=== PATIENT | female | born 1940 | race Caucasian/White ===

== ENCOUNTER 2019-03-26 18:41 | Emergency (ER) | payer MEDICARE, SELFPAY ==
[2019-03-26 18:43] VITALS: BP 129/98; PULSE 95; RESP 20; TEMP 37.6; O2SAT 99
--- NOTE | 2019-03-26 18:51 | ECG_ITS ---
Measurements Intervals [place] Rate: 77 P: 54 [place]: 151 QRS: -4 QRSD: 129 T: 24 QT: 375 QTc: 427 Interpretive Statements SINUS RHYTHM RIGHT BUNDLE BRANCH BLOCK ABNORMAL ECG Electronically Signed On 03-27-2019 6:53:59 OPHTHALMIC SURGICAL ASSISTANT by Varun Gonzalez D.O.
--- NOTE | 2019-03-26 20:30 | PC.NURSE ---
Pt up to desk stating she is going to leave and she will call her primary MD in the morning for an appointment.
== END 2019-03-26 20:30 | disposition left against medical advice (07) ==
LOC: ANHED 20:41
PROVIDERS: Emergency Provider General Practice; PCP Internal Medicine
DX: I10 Essential (primary) hypertension (principal)
CPT/HCPCS: 93005; 99199

== ENCOUNTER 2019-08-14 01:55 | Outpatient (CLI) | payer MEDICARE, SELFPAY ==
[2019-08-14 19:16] LABS: SARS-CoV-2 RNA PCR Negative
== END 2019-08-14 01:56 | disposition home or self-care (01) ==
LOC: ANHCOVIDDT 01:56
PROVIDERS: PCP Internal Medicine; Visit Provider Internal Medicine Cardiovascular Disease
DX: Z01.812 Encounter for preprocedural laboratory examination (principal); Z11.59 Encounter for screening for other viral diseases
CPT/HCPCS: 87635; C9803; U0003

== ENCOUNTER 2019-08-16 05:39 | Day surgery (SDC) | payer MEDICARE, SELFPAY ==
[2019-08-15 13:05] VITALS: BMI 32.3
[2019-08-16] VITALS (12 sets, daily range): BP systolic 115–154; BP diastolic 49–88; PULSE 51–69; RESP 14–20; O2SAT 97–100
--- NOTE | 2019-08-16 09:25 | WPDHPUPDATE1 ---
History and Physical Update Update Date/Time: Date of service: 08/16/19 09:25 History and Physical has been reviewed, including an updated exam of the patient. There are NO changes in the patient's condition. Risks, benefits, and alternatives have been discussed and questions answered. Patient agrees to proceed with procedure. HPI: Patient is a very pleasant 78-year-old female with carotid arterial stenosis status post right carotid endarterectomy in 2012, history tobacco abuse, PVCs, hypertension, aortic regurgitation with complaints of exertional dyspnea with progressive aortic regurgitation now severe on most recent 2D echocardiogram with referral recommendations for transesophageal echocardiogram. She notes a decline in activity tolerance. Past medical history: See above in HPI Social history: History tobacco abuse, current nonsmoker, lives with . Family history: No history premature atherosclerosis sudden cardiac otherwise not relevant at this time. Review of systems: No near-syncope, syncope or palpitations. No falls, bleeding, headache, rashes hair skin or nail changes. No abdominal pain, diarrhea or constipation. No significant vision changes. All other review of systems unremarkable with the exception of that noted above in history of present illness. Medications: Aspirin 325 mg daily, Prolia, metoprolol tartrate 25 mg twice daily, rosuvastatin 20 mg at bedtime, hydrochlorothiazide 12.5 mg daily Allergies: No known drug allergies Impression/plan of care: Severe aortic regurgitation with progressive shortness of breath decreased activity tolerance with plans for transesophageal echocardiogram to further assess severity of aortic regurgitation. Further recommendations to follow based on results of FER. Risks, benefits, and alternatives to FER explained in detail. Patient verbalized understanding and agreed to proceed with plan of care. Mod Sed Physical Exam Physical Exam Pre Procedural Exam: Normal: Appearance, Eyes, Ears, Nose, Neck, Throat, Airway, Lungs, Heart Size, Heart Rate, Heart Rhythm, Neuro Exam, Abdomen, Liver, Kidneys, Extremities and Skin Hours since solid foods: 12 Hours since liquid intake: 12
--- NOTE | 2019-08-16 09:34 | WPDMODSED ---
Moderate Sedation Note-Pt Data Patient Data Diagnosis: Severe aortic regurgitation Present Complaint: None Procedure to be performed/Plan: Transesophageal echocardiogram Allergies Allergy/AdvReac Type Severity Reaction Status Date / Time No Known Allergies Allergy Unverified 03/29/19 12:43 Home Medications Medication Instructions Recorded Confirmed Type losartan 50 mg tablet 50 mg PO DAILY #90 tablet 12/19/18 01/02/19 Rx Ca 600 mg-D3 800 unit-mag oxide 50 tablet PO DAILY tablet 01/02/19 01/02/19 History nb-Rm-nkhvte-manganese-boron tablet aspirin 325 mg tablet 325 mg PO DAILY 01/02/19 01/02/19 History cholecalciferol (vitamin D3) 250 10,000 unit PO DAILY 01/02/19 01/02/19 History mcg (10,000 unit) capsule cyclosporine 0.05 % eye drops 1 drop EACH EYE Q12H 01/02/19 01/02/19 History denosumab 60 mg/mL subcutaneous 60 mg SUB-Q [id number] 01/02/19 01/02/19 History syringe ergocalciferol (vitamin D2) 50,000 unit PO .once a month tablet 01/02/19 01/02/19 History unit tablet metoprolol tartrate 25 mg tablet 25 mg PO BID tablet 01/02/19 01/02/19 History rosuvastatin 20 mg tablet 20 mg PO DAILY 01/02/19 01/02/19 History turmeric root extract 500 mg 500 mg PO BID 01/02/19 01/02/19 History capsule vitamin A-vitamin C-vit E-min 1 tablet PO DAILY 01/02/19 01/02/19 History vitamin B12 500 mcg-folic acid 400 1 tablet PO DAILY 01/02/19 01/02/19 History mcg tablet Ca 600 mg-D3 800 unit-mag oxide 50 tablet PO DAILY tablet 03/06/19 History ok-Wk-idmdrn-manganese-boron tablet aspirin 325 mg tablet 325 mg PO DAILY 03/06/19 History cyclosporine 0.05 % eye drops 1 drop EACH EYE Q12H 03/06/19 History denosumab 60 mg/mL subcutaneous 60 mg SUB-Q [id number] 03/06/19 History syringe ergocalciferol (vitamin D2) 1,250 50,000 unit PO MONTHLY 03/06/19 History mcg (50,000 unit) capsule losartan 50 mg tablet 50 mg PO DAILY 03/06/19 History metoprolol tartrate 25 mg tablet 25 mg PO BID tablet 03/06/19 History rosuvastatin 20 mg tablet 20 mg PO DAILY 03/06/19 History turmeric root extract 500 mg 500 mg PO BID 03/06/19 History capsule vitamin A-vitamin C-vit E-min 1 tablet PO DAILY 03/06/19 History Current Medications: See list Sedation/Anesthesia: No previous sedation/anesthesia problems (including family history). [facility] Past Medical History Medical History CAD (coronary artery disease) CAD (coronary artery disease) Chronic cough HLD (hyperlipidemia) HTN (hypertension) Hyperlipidemia Hypertension Intermittent claudication Intermittent claudication Osteoporosis Osteoporosis Skin cancer Skin cancer Vitamin deficiency Vitamin deficiency Surgical History Surgical History H/O carotid endarterectomy Right 01/2012 History of right-sided carotid endarterectomy Family History Family History Mother Family history of malignant neoplasm of breast in first degree relative, Onset Age: 51 Father Family history of pancreatic cancer Father Pancreas cancer Mother Breast cancer Social History Social History Smoking status: Former smoker Tobacco type: cigarettes Smoking end date: 02/07/99 Alcohol intake: current Drinks per week: 7 Alcohol use details: 1-1&1/2 drinks per day Substance use: never Substance use type: does not use Living arrangements: with family Gender identity (if verbalized by the patient): Female Spiritual care concerns: No Mod Sed Physical Exam Physical Exam Pre Procedural Exam: Normal: Appearance, Eyes, Ears, Nose, Neck (Supple, normal range of motion), Throat (Posterior hypopharynx clear, nonerythematous), Airway (Normal anatomy, no obstruction), Lungs (Clear to auscultation bilaterally), Heart Size, Heart Rate, Heart Rhythm,
--- NOTE | 2019-08-16 09:35 | WPDTEECHO ---
FER TransEsophageal Echocardiogram Date of procedure: 08/16/19 Procedure Type: Transesophageal echocardiogram Diagnosis: Severe aortic regurgitation Indications: Severe aortic regurgitation Findings: Brief history present illness: Patient is a pleasant 78-year-old female with a history of hypertension, aortic regurgitation, carotid arterial disease status post carotid endarterectomy 2011, history tobacco abuse, PVCs referred for transesophageal echocardiogram for further evaluation for severity of aortic regurgitation as it was noted to have progressed and surface echocardiogram for moderate to severe with complaints of exertional dyspnea. Procedure in detail: After verbal and written informed consent was obtained the patient risks, benefits, and alternatives explained in detail the patient agreed to proceed with the plan of care as outlined above. The patient was evaluated at bedside in the [facility] procedure room. The posterior oropharynx, neck, and jaw angle all within normal limits on examination. Lungs were clear to auscultation. See pre-sedation note for further details The patient was then placed in the appropriate 30 to 45 degree angle supine position at a slight left lateral decubitus position. Patient was monitored throughout the study with telemetry, oxygen saturation, end-tidal CO2 monitoring, blood pressure, heart rate, and respirations. The posterior hypopharynx was then locally anesthetized using repeated administration of Hurricaine spray as well as gargled viscous lidocaine. After local anesthetic of the posterior hypopharynx was achieved and the oral bite block placed, moderate sedation was administered. After confirmation of adequate moderate sedation, the transesophageal echocardiogram probe was advanced through the oral bite block into the posterior hypopharynx and into the esophagus easily and without complication. Multiple, multiplanar echocardiographic images were obtained in multiple standard re- projections. Pulsed wave, continuous-wave, and color-flow Doppler were utilized in conjunction with this study. At the conclusion of the study, the transesophageal echocardiogram probe was removed easily and without complication. The patient tolerated the procedure well without difficulty. Patient was in sinus rhythm throughout the study. Moderate Sedation/Anesthesia administration: Patient reports no prior problems with sedation/anesthesia. Please see pre-sedation noted for physical examination documentation. As noted above, after adequate local anesthesia of the posterior hypopharynx was achieved, a total of 2 mg intravenous Versed and a total of 75 mcg intravenous Fentanyl in multiple divided doses was administered for moderate sedation. Sedation start time was 1015 and end time was 1045 for a total intra-service/procedure face-face time of 30 minutes. Sedation was administered by a qualified/certified observer Pati Henry RN under my supervision with intra-procedure [id number] observation and management throughout the entirety of the procedure. There were no other issues or complications and patient tolerated the procedure well. See post-anesthesia documentation. Findings: Left ventricular size and systolic function was within normal limits without wall motion abnormalities, a visually estimated ejection fraction of 65%, and mild concentric left ventricular hypertrophy. Right ventricular size and systolic function within normal limits. Left atrial size is severely enlarged. Right atrial size is normal. Prominent remnant Eustachian valve identified. Interatrial septum is anatomically normal with evidence of prominent Xdlw-em-Hwrls shunt with color-flow Doppler and secundum ASD, but without R-to-L shunt with injection of agitated saline with and without Valsalva. Mitral valve is anatomically normal with preserved leaflet excursion with moderate thickening and mild focal calcification, moderate mitral annular calcification, 2 to
== END 2019-08-16 13:09 | disposition home or self-care (01) ==
PROVIDERS: PCP Internal Medicine; Visit Provider Internal Medicine Cardiovascular Disease
PROC: (CPT 93312; principal; 2019-08-16 10:00)
DX: I35.1 Nonrheumatic aortic (valve) insufficiency (principal); I36.1 Nonrheumatic tricuspid (valve) insufficiency; I34.0 Nonrheumatic mitral (valve) insufficiency; I10 Essential (primary) hypertension; I25.10 Atherosclerotic heart disease of native coronary artery without angina pectoris; E78.5 Hyperlipidemia, unspecified; M81.0 Age-related osteoporosis without current pathological fracture; Z87.891 Personal history of nicotine dependence; Z79.82 Long term (current) use of aspirin
CPT/HCPCS: 93312; 93320; 93325; J2250; J3010; J7040

== ENCOUNTER 2019-08-31 01:07 | Outpatient (CLI) | payer MEDICARE, SELFPAY ==
[2019-09-01 18:47] LABS: SARS-CoV-2 RNA PCR Negative
== END 2019-08-31 01:08 | disposition home or self-care (01) ==
LOC: ANHCOVIDDT 01:07
PROVIDERS: PCP Internal Medicine; Visit Provider Internal Medicine Cardiovascular Disease
DX: Z01.818 Encounter for other preprocedural examination (principal); Z11.59 Encounter for screening for other viral diseases
CPT/HCPCS: 87635; C9803; U0003

== ENCOUNTER 2019-09-03 05:21 | Day surgery (SDC) | payer MEDICARE, SELFPAY ==
[2019-08-31 14:33] VITALS: BMI 31.8
[2019-09-03] VITALS (15 sets, daily range): BP systolic 105–159; BP diastolic 41–72; PULSE 63–77; RESP 15–20; TEMP 36.3; O2SAT 97–100; BMI 32.5
[2019-09-03 09:34] LABS: Basophils Absolute Auto 0.1 K/mm3 (0.0-0.1); Basophils Percent Auto 0.8 % (0.2-1.2); Eosinophils Absolute Auto 0.2 K/mm3 (0-0.3); Eosinophils Percent Auto 2.6 % (0-4.4); Hemoglobin 12.1 g/dL (12.0-15.0); Immature Granulocyte Absolute 0.03 K/mm3 (0.00-0.031); Immature Granulocyte Percent A 0.3 % (0-0.5); Lymphocytes Absolute Auto 1.96 K/mm3 (0.9-3.2); Lymphocytes Percent Auto 22.8 % (18.3-44.2); Mean Corpuscular HGB Conc 35.6 g/dl (32-36); Mean Corpuscular Hemoglobin 34.2 pg (26-34); Mean Platelet Volume 9.2 fl (7.4-10.4); Monocytes Absolute Auto 0.8 K/mm3 (0.1-0.6); Monocytes Percent Auto 9.7 % (2.6-8.5); Neutrophils Absolute Auto 5.5 K/mm3 (1.3-6.7); Neutrophils Percent Auto 63.8 % (45.5-73.1); Platelet Count Result 248 k/mm3 (150-375); Red Blood Count 3.54 M/mm3 (4.2-5.4); Red Cell Distribution Width 11.9 % (11.5-14.5); White Blood Count 8.6 K/mm3 (4.5-10.0)
[2019-09-03 09:45] LABS: Prothrombin Time 12.5 Seconds (11.1-14.7)
[2019-09-03 09:46] LABS: Anion Gap 14.9 mmol/L (7-16); Blood Urea Nitrogen 22 mg/dL (7-17); Calcium 9.5 mg/dL (8.4-10.2); Carbon Dioxide 27 mmol/L (22-30); Chloride 88 mmol/L (98-107); Estimated CRCL calculation 26 ml/min; Estimated Glomerular Filt Rate 36; Glucose 103 mg/dL (65-105); Potassium 3.9 mmol/L (3.4-5.0); Sodium 126 mmol/L (137-145)
--- NOTE | 2019-09-03 10:06 | WPDMODSED ---
Moderate Sedation Note-Pt Data Patient Data Diagnosis: severe aortic regurgitation, preoperative evaluation Present Complaint: None Procedure to be performed/Plan: left heart catheterization with selective left and right coronary angiography with left ventriculography and hemodynamics Allergies Allergy/AdvReac Type Severity Reaction Status Date / Time No Known Allergies Allergy Verified 09/03/19 09:35 Home Medications Medication Instructions Recorded Confirmed Type losartan 50 mg tablet 50 mg PO DAILY #90 tablet 12/19/18 09/03/19 Rx Ca 600 mg-D3 800 unit-mag oxide 50 1 tablet PO DAILY tablet 01/02/19 09/03/19 History jm-Tz-sjwhpa-manganese-boron tablet aspirin 325 mg tablet 325 mg PO DAILY 01/02/19 09/03/19 History cholecalciferol (vitamin D3) 250 10,000 unit PO DAILY 01/02/19 09/03/19 History mcg (10,000 unit) capsule cyclosporine 0.05 % eye drops 1 drop EACH EYE Q12H 01/02/19 09/03/19 History denosumab 60 mg/mL subcutaneous 60 mg SUB-Q [id number] 01/02/19 09/03/19 History syringe vitamin B12 500 mcg-folic acid 400 1 tablet PO DAILY 01/02/19 09/03/19 History mcg tablet ergocalciferol (vitamin D2) 1,250 50,000 unit PO MONTHLY 03/06/19 09/03/19 History mcg (50,000 unit) capsule metoprolol tartrate 25 mg tablet 25 mg PO BID tablet 03/06/19 09/03/19 History rosuvastatin 20 mg tablet 20 mg PO DAILY 03/06/19 09/03/19 History turmeric root extract 500 mg 500 mg PO BID 03/06/19 09/03/19 History capsule vitamin A-vitamin C-vit E-min 1 tablet PO DAILY 03/06/19 09/03/19 History hydrochlorothiazide 12.5 mg PO DAILY 08/16/19 09/03/19 History loratadine [Claritin] 10 mg PO DAILY 08/16/19 09/03/19 History fluticasone propionate [Flonase 1 spray INTRANASAL DAILY 09/03/19 09/03/19 History Allergy Relief] Current Medications: Active Medications Sodium Chloride (Normal Saline Iv) 500 mls @ 100 mls/hr IV CONT .Q5H COURT Sedation/Anesthesia: No previous sedation/anesthesia problems (including family history). [facility] Past Medical History Medical History CAD (coronary artery disease) CAD (coronary artery disease) Chronic cough HLD (hyperlipidemia) HTN (hypertension) Hyperlipidemia Hypertension Intermittent claudication Intermittent claudication Osteoporosis Osteoporosis Skin cancer Skin cancer Vitamin deficiency Vitamin deficiency Surgical History Surgical History H/O carotid endarterectomy Right 01/2012 History of right-sided carotid endarterectomy Family History Family History Mother Family history of malignant neoplasm of breast in first degree relative, Onset Age: 51 Father Family history of pancreatic cancer Father Pancreas cancer Mother Breast cancer Social History Social History Smoking status: Former smoker Tobacco type: cigarettes Smoking end date: 02/07/99 Additional smoking assessment comments: Hx. of smoking 40 years. Alcohol intake: current Drinks per week: 7 Substance use: never Substance use type: does not use Living arrangements: with family Gender identity (if verbalized by the patient): Female Spiritual care concerns: No Mod Sed Physical Exam Physical Exam Pre Procedural Exam: Normal: Appearance, Eyes, Ears, Nose, Neck, Throat ( posterior hypopharynx clear, nonerythematous), Airway ( normal anatomy, no obstruction), Lungs ( clear to auscultation bilaterally), Heart Size, Heart Rate, Heart Rhythm ( diastolic murmur), Neuro Exam, Abdomen, Liver, Kidneys, Extremities and Skin Hours since solid foods: 12 Hours since liquid intake: 12 Internal Medicine - PN: Obj Da Vital Signs Vital Signs: Vital Signs - 24 hr 09/03/19 09:30 Temperature 36.3 C L Pulse Rate 63 Respiratory Rate 20 Blood Pressure 158/67 H Pulse O
--- NOTE | 2019-09-03 10:25 | WPDHPUPDATE1 ---
History and Physical Update Update Date/Time: 09/03/19 10:25 History and Physical has been reviewed, including an updated exam of the patient. There are NO changes in the patient's condition. Risks, benefits, and alternatives have been discussed and questions answered. Patient agrees to proceed with procedure.
--- NOTE | 2019-09-03 10:25 | PM.PROC ---
Procedure Note - Detailed Date of procedure: 09/03/19 Pre-op diagnosis: Preoperative evaluation, severe aortic regurgitation Post-op diagnosis: same Procedure performed: left heart catheterization with selective left and right coronary angiography with left ventricular hemodynamics Description of procedure: BRIEF HISTORY OF PRESENT ILLNESS: Patient is a pleasant 78-year-old female with HTN, carotid arterial disease h/o tobacco abuse, dyslipidemia with progressive fatigue and exertional dyspnea found to have severe eccentric aortic regurgitation on 2D Echo and confirmed with FER referred for left heart catheterization for delineation of her coronary anatomy on a preoperative basis. PROCEDURES PERFORMED: 1. Left heart catheterization 2. Selective left and right coronary angiography 3. Left ventricular hemodynamics 4. Moderate/conscious sedation administration CATHETERS UTILIZED: Left coronary system- 5 [place] JL4 catheter Right coronary system- 5 [place] WRP catheter Left ventriculography and hemodynamics- 5 [place] angled pigtail catheter PROCEDURE IN DETAIL: After verbal and written informed consent was obtained the patient, risks, benefits, and alternatives explained in detail the patient agreed to proceed with the plan of care as outlined above. The patient was subsequently brought to the cardiac catheterization lab, placed on the cardiac catheterization table, and prepped and draped in the usual sterile fashion. Utilizing approximately 13cc of 1% subcutaneous Lidocaine, the right groin was then locally anesthetized. Utilizing the modified Seldinger technique, a 5 [place]uan arterial vascular access sheath was inserted in the right common femoral artery easily and without complications. Through this access, coronary angiography was subsequently obtained in multiple standard re-projections. Following this, a 5 [place] angled pigtail catheter was advanced retrograde across aortic valve into the cavity of the left ventricle. Left ventriculography was not performed in the interest of sparing contrast given renal insufficiency. The aortic valve was crossed with measurement of hemodynamics and recording including pullback across the aortic valve. The vascular access sheath and angiographic catheters were flushed before and after catheter exchanges. At the conclusion of the diagnostic portion of the procedure, all angiographic guidewires and catheters were removed and the 5 [place] arterial vascular access sheath was then pulled and satisfactory hemostasis was achieved using manual compression. There no complications noted at the conclusion of the diagnostic portion of the study. MODERATE SEDATION/ANESTHESIA ADMINISTRATION: Patient reports no prior problems with sedation/anesthesia. Please see pre-sedation noted for physical examination documentation. Sedation start time was 1034 and end time was 1103 for a total intra-service/procedure face-face time of 29 minutes. A total of 1 mg intravenous Versed and a total of 50 mcg intravenous Fentanyl in multiple divided doses was administered for moderate sedation. Moderate sedation was administered by qualified/certified observer Aman Borrero RN under my supervision with intra-procedure [id number] observation and management throughout the entirety of the procedure. There were no other issues or complications and patient tolerated the procedure well. See post-anesthesia documentation. Anesthesia: local and other ( Monitor/moderate sedation) Surgeon: Jose Foreman MD Drains: No Packing: No Pathology: none sent Complications: No immediate complications Condition: stable Disposition: observation Findings: CORONARY ANGIOGRAPHY: The LEFT MAIN arose from the left coronary cusp and was without angiographically significant disease. The left main then trifurcated into the left anterior descending artery and circumflex coronary artery. LEFT ANTERIOR DESCENDING ARTERY: Moderate caliber vessel proxim
--- NOTE | 2019-09-03 17:10 | SUR.PHASEII ---
1700-pt given D/C orders and instructions. Questions answered and verbalized understanding. AOx4. Groin soft and non-tender, no evidence of bleeding or hematoma noted. Moderate right pedal pulse noted. Taken via wheelchair to waiting vehicle. No distress noted or verbalized at time of departure.
== END 2019-09-03 17:00 | disposition home or self-care (01) ==
PROVIDERS: PCP Internal Medicine; Visit Provider Internal Medicine Cardiovascular Disease
PROC: 4A023N7 Measurement of Cardiac Sampling and Pressure, Left Heart, Percutaneous Approach (ICD-10-PCS; CPT 93452; principal; 2019-09-03 10:00)
DX: Z01.810 Encounter for preprocedural cardiovascular examination (principal); I35.1 Nonrheumatic aortic (valve) insufficiency; I25.10 Atherosclerotic heart disease of native coronary artery without angina pectoris; I10 Essential (primary) hypertension; E78.5 Hyperlipidemia, unspecified; R06.09 Other forms of dyspnea; R53.83 Other fatigue; M81.0 Age-related osteoporosis without current pathological fracture; Z79.82 Long term (current) use of aspirin; Z87.891 Personal history of nicotine dependence
CPT/HCPCS: 36415; 80048; 85025; 85610; 93458; C1887; C1894; J1644; J2250; J3010; J7040

== ENCOUNTER 2020-03-31 10:30 | Outpatient (RCR) | payer MEDICARE, SELFPAY ==
[2020-01-08 15:25] VITALS: BP 158/70; PULSE 56; RESP 16; TEMP 36.4
--- NOTE | 2020-01-17 13:42 | PCCPR ---
Absent Marcelina Coe called is in The ED with her . She did not think she would make it in plans to return on Tuesday at the new time 1100.
--- NOTE | 2020-01-23 16:02 | PCCPR ---
Pt received phone call that she was exposed in public;she plans to call her PCP to see what next steps are for exposure and will let us know when she plans to return.
== END 2020-03-31 12:21 | disposition home or self-care (01) ==
LOC: ANHCPREHAB 10:30
PROVIDERS: PCP Internal Medicine; Visit Provider Internal Medicine Cardiovascular Disease
DX: Z95.2 Presence of prosthetic heart valve (principal)
CPT/HCPCS: 93798

== ENCOUNTER → 2021-11-30 12:06 | Outpatient (CLI) | payer MEDICARE, SELFPAY ==
--- NOTE | ~2021-11-30 | MM_ITS ---
EXAMINATION: MM screening [facility] BI w syd[place] HISTORY: Screening mammogram TECHNIQUE: Craniocaudal and mediolateral oblique 3-D tomosynthesis images were obtained and synthetic 2-D images were generated. CAD analysis was submitted and interpreted. COMPARISON: 01/12/2019, 03/29/2018, 01/03/2017 BREAST PARENCHYMAL COMPOSITION: There are scattered areas of fibroglandular density. FINDINGS: Scattered benign-appearing calcifications are present. No suspicious mass, calcification, o r architectural distortion are identified in either breast to suggest malignancy. There has been no s uspicious interval change. IMPRESSION: 1. No mammographic evidence of malignancy. 2. Recommend routine screening mammography in one year. BI-RADS Category 2: Benign finding(s). Reviewed, dictated and finalized at location A.
== END ==
PROVIDERS: PCP Internal Medicine; Visit Provider Internal Medicine
DX: Z12.31 Encounter for screening mammogram for malignant neoplasm of breast (principal)
CPT/HCPCS: 77063; 77067

== ENCOUNTER 2022-10-27 08:34 | Outpatient (CLI) | payer MEDICARE, SELFPAY ==
--- NOTE | 2022-10-31 16:27 | WPDSLEEPSTUD ---
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 On occasion she has difficulty falling asleep and occasionally she has excessive daytime sleepiness. Sleep History Marcelina Reed is an 81-year-old woman with Worsening pulmonary hypertension, echo on 09/23/2022 shows peak pulmonary arterial pressure of 65 mm Hg, previously was 42 mm Hg. She is having a Basic nocturnal polysomnogram to determine if obstructive sleep apnea is worsening her pulmonary hypertension. She Never awakens from sleep short of breath. She never at night with heartburn, belching or coughing.??She frequently snores, frequently snores loudly enough that others complain. She occasionally has trouble sleeping when she has a cold. She never wakes up gasping for breath during the night. She never has breathing problems at night. She never sweats excessively at night. She never notices her heart pounding or beating irregularly during the night. She frequently falls asleep during the day. She never falls asleep involuntarily, never falls asleep while driving. She never experiences loss of muscle tone with strong emotion. She never feels paralyzed on waking or falling asleep. She rarely experiences vivid dreams upon waking or falling asleep. She never feels afraid of going to sleep. She rarely has nightmares. She rarely recalls her dreams. She occasionally has thoughts racing through her mind. She rarely feels sad or depressed. She rarely feels anxiety. She occasionally notices parts of her body jerk. She never kicks during the night. She frequently feels crawling or aching feelings in her legs. She frequently feels leg pain at night. She never grinds her teeth, and never has morning jaw pain. She frequently feels bothered by pain during the day, occasionally awakened by pain during the night. She constantly wakes up feeling stiff in the morning, constantly wakes feeling sore or achy in the morning. Frequently she awakens with pain in her neck, spine, or joints. Normal bedtime is 12 midnight, often taking a variable amount of time to fall asleep. She typically gets about 8 hours of sleep per night. Her wake time is 9:00 a.m.. she takes naps in the afternoon or evening. A short nap lasting 10 or 15 minutes may be refreshing. She is usually drowsy for 2 hours after waking. Habits:??Tobacco: quit 20 years ago Caffeine: 2-3 cups of coffee a day. Alcohol: 2 beverages per day Recreational substances: none [facility] Past Medical History Medical History (Updated 10/31/22 @ 16:50 by Herminia Jarquin MD) CAD (coronary artery disease) Chronic cough Hyperlipidemia Hypertension Intermittent claudication OAB (overactive bladder) Osteoporosis Skin cancer Vitamin deficiency Surgical History Surgical History Aortic valve replaced 10/2020 H/O carotid endarterectomy Right 01/2012 H/O heart bypass surgery 10/2020 History of right-sided carotid endarterectomy Family History Family History Mother Family history of malignant neoplasm of breast in first degree relative, Onset Age: 51 Father Family history of pancreatic cancer Father Pancreas cancer Mother Breast cancer Social History Social History (Updated 09/30/22 @ 11:39 by Malcolm Sanches MA) Smoking status: Former smoker Tobacco type: cigarettes Smoking end date: 02/07/99 Additional smoking assessment comments: closet smoker varied rare Alcohol intake: current Drinks per week: 7 A
[2022-10-31 16:34] VITALS: BMI 31.2
== END 2022-10-28 07:21 | disposition home or self-care (01) ==
LOC: ANHCSM 08:36
PROVIDERS: PCP Internal Medicine; Visit Provider Internal Medicine Cardiovascular Disease
DX: G47.10 Hypersomnia, unspecified (principal); G47.61 Periodic limb movement disorder
CPT/HCPCS: 95810

== ENCOUNTER 2022-11-20 22:41 | Emergency (ER) | payer MEDICARE, SELFPAY ==
--- NOTE | ~2022-11-20 | XR_ITS ---
EXAMINATION: XR chest 2V DATE: 11/20/2022 23:07 INDICATION: Chest tightness. TECHNIQUE: Frontal and lateral views of the chest were obtained. COMPARISON: Chest 2 views 05/01/2010 FINDINGS: A calcified left lung nodule is consistent with old granulomatous disease. No pleural effus ion or pneumothorax. The heart size is normal. Median sternotomy wires are noted. IMPRESSION: 1. No acute cardiopulmonary disease. Reviewed, dictated and finalized at location E.
--- NOTE | 2022-11-20 22:42 | ECG_ITS ---
Measurements Intervals [place] Rate: 78 P: 60 [place]: 149 QRS: -3 QRSD: 138 T: 10 QT: 390 QTc: 445 Interpretive Statements SINUS RHYTHM RIGHT BUNDLE BRANCH BLOCK Electronically Signed On 11-21-2022 12:58:29 CDT by Noel Alejo M.D.
[2022-11-20 22:44] VITALS: BP 210/88; PULSE 80; RESP 27; TEMP 36.1; O2SAT 100; O2SAT 97
[2022-11-20 22:57] LABS: Basophils Percent Auto 0.3 % (0.2-1.2); Eosinophils Absolute Auto 0.1 K/mm3 (0-0.3); Eosinophils Percent Auto 1.3 % (0-4.4); Hematocrit 40.7 % (37.0-47.0); Hemoglobin 13.6 g/dL (12.0-15.0); Immature Granulocyte Absolute 0.03 K/mm3 (0.00-0.031); Immature Granulocyte Percent A 0.3 % (0-0.5); Lymphocytes Absolute Auto 2.32 K/mm3 (0.9-3.2); Lymphocytes Percent Auto 26.8 % (18.3-44.2); Mean Corpuscular HGB Conc 33.4 g/dl (32-36); Mean Corpuscular Hemoglobin 32.9 pg (26-34); Mean Corpuscular Volume 98.3 fl (80-100); Monocytes Absolute Auto 0.8 K/mm3 (0.1-0.6); Monocytes Percent Auto 9.4 % (2.6-8.5); Neutrophils Absolute Auto 5.4 K/mm3 (1.3-6.7); Neutrophils Percent Auto 61.9 % (45.5-73.1); Platelet Count Result 176 k/mm3 (150-375); Red Blood Count 4.14 M/mm3 (4.2-5.4); Red Cell Distribution Width 12.5 % (11.5-14.5); White Blood Count 8.7 K/mm3 (4.5-10.0)
[2022-11-20 23:12] LABS: Alanine Aminotransferase 15 U/L (6-35); Albumin Level 4.9 g/dL (3.5-5.1); Alkaline Phosphatase 56 U/L (38-126); Anion Gap 8 mmol/L (8-16); Aspartate Amino Transferase 26 U/L (14-36); Bilirubin,Total 0.8 mg/dL (0.2-1.3); Blood Urea Nitrogen 15 mg/dL (7-17); Calcium 9.6 mg/dL (8.4-10.2); Carbon Dioxide 29 mmol/L (22-30); Chloride 94 mmol/L (98-107); Estimated CRCL calculation 33 ml/min; Estimated Glomerular Filt Rate 53; Glucose 102 mg/dL (65-110); Lipase 110 U/L (23-300); Potassium 3.8 mmol/L (3.4-5.0); Sodium 131 mmol/L (137-145)
[2022-11-20 23:18] LABS: Prothrombin Time 13.6 Seconds (11.1-14.7)
[2022-11-20 23:19] LABS: Partial Thromboplastin Time 32.2 SECONDS (22.3-36.8)
[2022-11-20 23:24] LABS: Troponin I < 0.012 ng/mL (0.000-0.034)
[2022-11-20] MEDS: ASPIRIN 81 MG CHEWABLE TABLET 324 MG PO (23:26)
[2022-11-20 23:30] VITALS: PULSE 65; RESP 20; O2SAT 97
[2022-11-20 23:46] VITALS: BP 177/64; PULSE 60; RESP 21; O2SAT 96
[2022-11-20 23:47] VITALS: PULSE 59; RESP 19; O2SAT 97
[2022-11-21] VITALS: PULSE 59; RESP 18; O2SAT 97
[2022-11-21 00:01] VITALS: BP 161/65; PULSE 58; RESP 23; O2SAT 96
[2022-11-21 00:17] VITALS: PULSE 59; RESP 21; O2SAT 97
--- NOTE | 2022-11-21 00:26 | ED.GENADULT ---
HPI - General Adult General Chief complaint: Chest Pain Stated complaint: HTN, chest tightness Time Seen by Provider: 11/20/22 22:44 History of Present Illness HPI narrative: Patient 82-year-old female presents emerged department with chief complaint of hypertension and slight discomfort in the chest. Patient states that she has a fullness feeling in her low chest that also noticed that her blood pressures been running elevated the patient states for the last week her pressures been running in the 180s to low 200s patient reports no shortness of breath denies diaphoresis denies radiation of pain patient does report that she had single-vessel cardiac disease and had a bypass and is also had a valve replacement. Related Data Home Medications Medication Instructions Recorded Confirmed Ca 600 mg-D3 20 mcg-mag oxide 50 1 tablet PO DAILY 01/02/19 09/30/22 qd-Xh-dchnpm-manganese-boron tablet (Calcium 600-D3 Plus (mag-zinc)) cyclosporine 0.05 % eye drops 1 drop ophthalmic (eye) Q12H 01/02/19 09/30/22 (Restasis MultiDose) denosumab 60 mg/mL subcutaneous 60 mg subcut [id number] 01/02/19 09/30/22 syringe (Prolia) vitamin B12 500 mcg-folic acid 400 1 tablet PO DAILY 01/02/19 09/30/22 mcg tablet ergocalciferol (vitamin D2) 1,250 50,000 unit PO MONTHLY 03/06/19 09/30/22 mcg (50,000 unit) capsule rosuvastatin 20 mg tablet 20 mg PO DAILY 03/06/19 09/30/22 loratadine 10 mg tablet (Claritin) 10 mg PO DAILY 08/16/19 09/30/22 aspirin 81 mg tablet,delayed 81 mg PO DAILY 11/14/19 09/30/22 release (Adult Aspirin Regimen) omeprazole 20 mg capsule,delayed 20 mg PO DAILY 11/14/19 09/30/22 release metoprolol succinate 50 mg 75 mg PO BID 11/30/19 09/30/22 tablet,extended release 24 hr acetaminophen 500 mg tablet 1,000 mg PO PRN Pain 01/08/20 09/30/22 furosemide 40 mg tablet 40 mg PO DAILY 01/08/20 09/30/22 cholecalciferol (vitamin D3) 125 125 mcg PO DAILY 05/19/21 09/30/22 mcg (5,000 unit) capsule Allergies Allergy/AdvReac Type Severity Reaction Status Date / Time No Known Allergies Allergy Verified 09/30/22 11:38 Review of Systems Review of Systems: A 10 system review of systems was completed on the patient and is negative except for what is stated in the HPI. Nursing and ancillary documentation was reviewed. [facility] Past Medical History Medical History CAD (coronary artery disease) Chronic cough Hyperlipidemia Hypertension Intermittent claudication OAB (overactive bladder) Osteoporosis Skin cancer Vitamin deficiency Surgical History Surgical History Aortic valve replaced 10/2020 H/O carotid endarterectomy Right 01/2012 H/O heart bypass surgery 10/2020 History of right-sided carotid endarterectomy Family History Family History Mother Family history of malignant neoplasm of breast in first degree relative, Onset Age: 51 Father Family history of pancreatic cancer Father Pancreas cancer Mother Breast cancer Social History Social History Smoking status: Former smoker Tobacco type: cigarettes Smoking end date: 02/07/99 Additional smoking assessment comments: closet smoker varied rare Alcohol intake: current Drinks per week: 7 Alcohol use details: 1-1&1/2 drinks per day Substance use: never Substance use type: does not use Lack of Transportation: No Lack of Food: Never True Current Housing: I Have Housing Concerned About Future Housing: No Difficulty Paying Gas/Electric Bills: No Difficulty Paying for Meds: No Currently Unemployed: No Education: Bachelor's Degree Difficulty w/ Childcare or Family Care: No Living arrangements: with family Gender identity (if verbalized by the patient): Female
[2022-11-21 00:30] VITALS: PULSE 60; RESP 23; O2SAT 97
[2022-11-21 00:31] VITALS: BP 181/63; PULSE 60; RESP 24; O2SAT 98
== END 2022-11-21 01:11 | disposition home or self-care (01) ==
PROVIDERS: Emergency Provider Emergency Medicine; PCP Internal Medicine
DX: I10 Essential (primary) hypertension (principal); R07.89 Other chest pain; I25.10 Atherosclerotic heart disease of native coronary artery without angina pectoris; E78.5 Hyperlipidemia, unspecified; E56.9 Vitamin deficiency, unspecified; N32.81 Overactive bladder; M81.0 Age-related osteoporosis without current pathological fracture; Z95.2 Presence of prosthetic heart valve; Z85.828 Personal history of other malignant neoplasm of skin; Z87.891 Personal history of nicotine dependence; Z79.82 Long term (current) use of aspirin; I45.10 Unspecified right bundle-branch block
CPT/HCPCS: 36415; 71046; 80053; 83690; 84484; 85025; 85610; 85730; 93005; 99284; A9270

== ENCOUNTER → 2022-12-27 11:52 | Outpatient (CLI) | payer MEDICARE, SELFPAY ==
--- NOTE | ~2022-12-27 | XR_ITS ---
EXAMINATION: XR hip BI 2V w AP pelvis DATE: 12/27/2022 12:05 INDICATION: Bilateral hip pain TECHNIQUE: AP view of the pelvis and two views of each hip were obtained. COMPARISON: None. FINDINGS: Bone alignment is normal. There is no fracture. There is mild osteoarthritis of the hips. P hleboliths are noted in the pelvis. IMPRESSION: 1. No acute osseous abnormality. Reviewed, dictated and finalized at location F. ANESE BREAKER
== END ==
PROVIDERS: PCP Internal Medicine; Visit Provider Internal Medicine
DX: M25.551 Pain in right hip (principal); M25.552 Pain in left hip
CPT/HCPCS: 73521

== ENCOUNTER 2022-12-27 13:39 | Outpatient (CLI) | payer MEDICARE, SELFPAY ==
[2022-12-27 18:15] LABS: Hematocrit 38.5 % (37.0-47.0); Hemoglobin 12.5 g/dL (12.0-15.0); Mean Corpuscular HGB Conc 32.5 g/dl (32-36); Mean Corpuscular Hemoglobin 32.6 pg (26-34); Mean Corpuscular Volume 100.5 fl (80-100); Mean Platelet Volume 10.2 fl (7.4-10.4); Platelet Count Result 176 k/mm3 (150-375); Red Blood Count 3.83 M/mm3 (4.2-5.4); Red Cell Distribution Width 12.5 % (11.5-14.5); White Blood Count 8.3 K/mm3 (4.5-10.0)
[2022-12-27 18:26] LABS: Alanine Aminotransferase 12 U/L (6-35); Albumin Level 4.5 g/dL (3.5-5.1); Alkaline Phosphatase 56 U/L (38-126); Anion Gap 8 mmol/L (8-16); Aspartate Amino Transferase 27 U/L (14-36); Bilirubin,Total 0.9 mg/dL (0.2-1.3); Blood Urea Nitrogen 19 mg/dL (7-17); Carbon Dioxide 28 mmol/L (22-30); Chloride 94 mmol/L (98-107); Estimated Glomerular Filt Rate 43; Glucose 140 mg/dL (65-110); Potassium 4.4 mmol/L (3.4-5.0); Sodium 130 mmol/L (137-145)
[2022-12-27 19:15] LABS: Erythrocyte Sedimentation Rate 16 mm/hr (0-20)
[2022-12-27 20:42] LABS: Folic Acid 13.4 ng/mL (2.76->20)
== END 2022-12-27 13:40 | disposition home or self-care (01) ==
LOC: ANHGOSHLAB 13:41
PROVIDERS: PCP Internal Medicine; Visit Provider Internal Medicine
DX: R53.83 Other fatigue (principal); I10 Essential (primary) hypertension; J32.9 Chronic sinusitis, unspecified
CPT/HCPCS: 36415; 80053; 82607; 82746; 84443; 85027; 85652

== ENCOUNTER 2023-02-08 11:00 | Outpatient (RCR) | payer MEDICARE, SELFPAY ==
--- NOTE | 2023-01-11 11:22 | PTOPEVAL1 ---
Assessment and note entered by Deangelo Aguilar, PT Evaluation Information Assessment Status Evaluation Diagnosis Unsteadiness on feet, weakness Onset 8 years ago Subjective Information Reports that as of late walking and navigating stairs have been very difficult. She is getting pain and weakness in her legs mostly anterior quads. She has not had any recent falls, but about 5 years ago she did fracture her knee. Most of her pain feels like her back. She is getting some pain radiating down her legs at times. She is still driving and seems to manage well with that. She is having some trouble with foot clearance into her car. Endurance does not feel like an issue at this time. Has pain with standing activity in back but is relieved by sitting. Reported Pain Level Pain Score 2: Self Report Assessment PT Clinical Summary Patient presents with most deficits in hip mobility and strength this date. Scored well on Tinetti but does show some stability deficits and will benefit from skilled therapy to address. Would like to focus on hip mobility and isolated strengthening with progression to functional training and balance as she progresses Plan of Care Interventions Electrical Stimulation,Gait Training,Manual Therapy,Neuro Re-education,Therapeutic Activities, Therapeutic Exercise PT Services Indicated Yes Treatment Frequency and 2x/week for 4 weeks Duration These treatments will address the objective and functional deficits as defined above. The patient will be advanced safely and appropriately in order for the patient to progress towards his/her prior level of function. Additional exercises will be introduced and as well as a comprehensive home exercise program upon discharge, if needed, ?to ensure carryover of functional gains achieved in the clinic. This treatment plan has been reviewed and agreement upon by the patient.
--- NOTE | 2023-01-11 11:23 | OPREHPOC ---
Outpatient Therapy Plan of Care This is a Multidisciplinary Plan of Care that may contain components documented by all disciplines (PT, OT, and ST.) PT Problem 1 PT Problem #1 Knowledge Deficit PT Goal 1 Goal [place] with HEP Target Visit 4 PT Problem 2 PT Problem #2 Pain PT Goal 1 Goal Patient will report no pain with standing activity for 30 minutes Target Visit 8 PT Problem 3 PT Problem #3 Impaired Range of Motion PT Goal 1 Goal Demonstrate 40 degrees of kayla hip abduction to assist with reduction in pelvic pull and reducestride limitation with gait Target Visit 8 PT Problem 4 PT Problem #4 Impaired Strength PT Goal 1 Goal Patient will improve kayla hip abduction strength to 4/5 to improve pelvic stability and endurance with ADL performance and walking Target Visit 8 PT Goal 2 Goal Patient will improve kayla hip flexion strength to 4 +/5 to improve foot clearence with walking Target Visit 8 PT Problem 5 PT Problem #5 Impaired Balance PT Goal 1 Goal Patient will demonstrate ability to perform dynamic balance shifting on uneven surface for 30 seconds to reduce fall risk with dynamic activity Target Visit 8
--- NOTE | 2023-02-08 11:55 | PTOPDC ---
Assessment and note entered by Deangelo Aguilar, PT Evaluation Information Assessment Status Discharge Diagnosis Unsteadiness on feet, weakness Onset 8 years ago Subjective Information Reports that since starting therapy she is still struggling with stairs. She has pain in her knees when she does stairs. Reports that she is not going to have a knee replacement and will avoid it. Still has some difficulty with walking and endurance. She has been consistent and compliant with exercises both in therapy and home. Does not notice a lot of change in distance or frequency of walking. We discussed objective improvement and patient would like to continue exercises at home and work towards self motivation. States that she has a recumbent bike at home and will use it for increased cardio exercie weekly. Reported Pain Level Pain Score 0: Self Report Assessment PT Clinical Summary Patient has seen objective improvement in hip mobility and strength with minor balance limitations remaining. She is suitable for discharge but still shows potential for continued improvement and will be complaint with HEP. Plan of Care PT Services Indicated Yes
--- NOTE | 2023-02-08 11:56 | OPREHPOC ---
Outpatient Therapy Plan of Care This is a Multidisciplinary Plan of Care that may contain components documented by all disciplines (PT, OT, and ST.) PT Problem 1 PT Problem #1 Knowledge Deficit PT Goal 1 Goal [place] with HEP Target Visit 4 Progress Met PT Problem 2 PT Problem #2 Pain PT Goal 1 Goal Patient will report no pain with standing activity for 30 minutes Target Visit 8 Progress Met PT Problem 3 PT Problem #3 Impaired Range of Motion PT Goal 1 Goal Demonstrate 40 degrees of kayla hip abduction to assist with reduction in pelvic pull and reducestride limitation with gait Target Visit 8 Progress Partially Met Comment Improve R, but lacking on L LE PT Problem 4 PT Problem #4 Impaired Strength PT Goal 1 Goal Patient will improve kayla hip abduction strength to 4/5 to improve pelvic stability and endurance with ADL performance and walking Target Visit 8 Progress Partially Met Comment Improved PT Goal 2 Goal Patient will improve kayla hip flexion strength to 4 +/5 to improve foot clearence with walking Target Visit 8 Progress Partially Met Comment Improved PT Problem 5 PT Problem #5 Impaired Balance PT Goal 1 Goal Patient will demonstrate ability to perform dynamic balance shifting on uneven surface for 30 seconds to reduce fall risk with dynamic activity Target Visit 8 Progress Met
== END 2023-02-08 13:06 | disposition home or self-care (01) ==
LOC: ANHGOSHPT 11:00
PROVIDERS: PCP Internal Medicine; Visit Provider Internal Medicine
DX: R26.81 Unsteadiness on feet (principal); R29.898 Other symptoms and signs involving the musculoskeletal system
CPT/HCPCS: 97014; 97110; 97112; 97116; 97161; 97530; G0283

== ENCOUNTER 2023-05-13 10:36 | Outpatient (CLI) | payer MEDICARE, SELFPAY ==
[2023-05-13 14:52] LABS: Vitamin D 25 Hydroxy 88.1 ng/mL
== END 2023-05-13 10:37 | disposition home or self-care (01) ==
LOC: ANHGOSHLAB 10:38
PROVIDERS: PCP Internal Medicine; Visit Provider Internal Medicine
DX: M81.0 Age-related osteoporosis without current pathological fracture (principal)
CPT/HCPCS: 36415; 82306

== ENCOUNTER 2023-07-18 13:57 | Outpatient (CLI) | payer MEDICARE, SELFPAY ==
--- NOTE | ~2023-07-18 | CT_ITS ---
EXAMINATION: CT sinus wo con DATE: 07/18/2023 14:20 INDICATION: Acute recurrent sinusitis and cough TECHNIQUE: Computed tomography (CT) of the paranasal sinuses was performed without intravenous contra st. The dose-length product was 309.20 mGy-cm. Automated exposure control and iterative reconstructio n technique were employed. COMPARISON: CT dated 02/28/2019 FINDINGS: No significant mucosal thickening. No air-fluid levels. Leftward nasal septal deviation. Os tiomeatal units are patent. Small left mastoid effusion. IMPRESSION: 1. No significant sinus disease. 2: Small left mastoid effusion. Reviewed, dictated and finalized at location B.
== END 2023-07-18 13:58 ==
LOC: MICIMG 13:58
PROVIDERS: PCP Internal Medicine; Visit Provider Otolaryngology
DX: J01.90 Acute sinusitis, unspecified (principal)
CPT/HCPCS: 70486

== ENCOUNTER 2023-07-25 13:58 | Outpatient (CLI) | payer MEDICARE, SELFPAY ==
[2023-07-25 20:58] LABS: Anion Gap 3 mmol/L (4-12); Blood Urea Nitrogen 13 mg/dL (7-17); Calcium 9.4 mg/dL (8.4-10.2); Carbon Dioxide 31 mmol/L (22-30); Chloride 101 mmol/L (98-107); Estimated Glomerular Filt Rate 47; Glucose 117 mg/dL (65-110); Potassium 4.4 mmol/L (3.4-5.0); Sodium 135 mmol/L (137-145)
[2023-07-25 22:26] LABS: Vitamin D 25 Hydroxy 80.2 ng/mL
== END 2023-07-25 13:59 | disposition home or self-care (01) ==
PROVIDERS: PCP Internal Medicine; Visit Provider Internal Medicine
DX: E87.1 Hypo-osmolality and hyponatremia (principal); E55.9 Vitamin D deficiency, unspecified
CPT/HCPCS: 36415; 80048; 82306

== ENCOUNTER 2023-12-27 10:06 | Outpatient (CLI) | payer MEDICARE, SELFPAY ==
[2023-12-27 13:42] LABS: Alanine Aminotransferase 10 U/L (6-35); Albumin Level 4.4 g/dL (3.5-5.1); Alkaline Phosphatase 51 U/L (38-126); Anion Gap 5 mmol/L (4-12); Aspartate Amino Transferase 37 U/L (14-36); Blood Urea Nitrogen 14 mg/dL (7-17); Calcium 9.1 mg/dL (8.4-10.2); Carbon Dioxide 29 mmol/L (22-30); Chloride 101 mmol/L (98-107); Cholesterol 161 mg/dL (0-200); Estimated Glomerular Filt Rate 47; Glucose 94 mg/dL (65-110); HDL Direct 60 mg/dL; Sodium 135 mmol/L (137-145); Triglycerides 81 mg/dL (<150)
[2023-12-27 13:47] LABS: Basophils Percent Auto 0.5 % (0.2-1.2); Eosinophils Absolute Auto 0.2 K/mm3 (0-0.3); Eosinophils Percent Auto 2.9 % (0-4.4); Hematocrit 38.4 % (37.0-47.0); Hemoglobin 12.7 g/dL (12.0-15.0); Immature Granulocyte Absolute 0.01 K/mm3 (0.00-0.031); Immature Granulocyte Percent A 0.2 % (0-0.5); Lymphocytes Absolute Auto 1.33 K/mm3 (0.9-3.2); Mean Corpuscular HGB Conc 33.1 g/dl (32-36); Mean Corpuscular Hemoglobin 32.6 pg (26-34); Mean Corpuscular Volume 98.5 fl (80-100); Mean Platelet Volume 10.3 fl (7.4-10.4); Monocytes Absolute Auto 0.5 K/mm3 (0.1-0.6); Monocytes Percent Auto 9.2 % (2.6-8.5); Neutrophils Absolute Auto 3.5 K/mm3 (1.3-6.7); Neutrophils Percent Auto 63.2 % (45.5-73.1); Platelet Count Result 156 k/mm3 (150-375); Red Cell Distribution Width 12.4 % (11.5-14.5); White Blood Count 5.5 K/mm3 (4.5-10.0)
[2023-12-27 14:07] LABS: LDL Cholesterol Direct 76 mg/dL
[2023-12-27 14:39] LABS: Vitamin D 25 Hydroxy 83.6 ng/mL
[2023-12-27 20:24] LABS: Folic Acid 12.6 ng/mL (2.76->20)
== END 2023-12-27 10:07 | disposition home or self-care (01) ==
LOC: ANHGOSHLAB 10:07
PROVIDERS: PCP Internal Medicine; Visit Provider Internal Medicine
DX: R53.83 Other fatigue (principal); I25.10 Atherosclerotic heart disease of native coronary artery without angina pectoris; E87.1 Hypo-osmolality and hyponatremia; E78.5 Hyperlipidemia, unspecified; I10 Essential (primary) hypertension; E55.9 Vitamin D deficiency, unspecified; E53.8 Deficiency of other specified B group vitamins
CPT/HCPCS: 36415; 80053; 80061; 82306; 82607; 82746; 84443; 85025

== ENCOUNTER 2024-05-29 10:45 | Outpatient (CLI) | payer MEDICARE, SELFPAY ==
--- OUTSIDE RECORDS SUMMARY | 2024-05-29 12:22 | XMS_ITS | Encounter Summary ---
Author Organization [facility] Address [address] [place] [id number] Care Team Providers Care Scoop Machine Operator Name Role Phone Getachew Samaniego DO Primary Care Provider [phone] Getachew Samaniego DO Primary Care Provider [phone]- [phone] Getachew Samaniego DO Primary Care Provider [phone]- [phone] Encounter Details Date Type Department Care Team (Late st Contact Info) Description 03/24/2016 Orders Only [facility] ProviderMohini MD [address] [place] [id number] Social History Tobacco Use Types Packs/Day Years Used Date Smoking Tobacco: Never Assessed Comments Unknown Sex and Gender Information Value Date Recorded Sex Assigned at Not on file 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 us Historical Provider [facility]IAC SERVICES PROCE DURES Final Result * CARDIOLOGY REPORT (03/24/2016) Anatomical Region Laterality Modality Other Narrative 03/24/2016 Ordered by an unspecified provider. us Historical Provider [facility] CARDIAC SERVICES PROCE DURES Final Result documented in this encounter Visit Diagnoses Not on filedocumented in this encounter Additional Health Concerns Infection Onset Date Last Indicated Resolved Time COVID: Suspected 09/20/2019 09/20/2019 10/04/2019 3:06 AM CDT COVID: Suspected 11/15/2019 11/15/2019 11/16/2019 6:58 AM CDT Respiratory Infection (ALEC), contact + droplet Comment:Negative COVID-19 result, an alternative Dx has been determined per the bedside CAN Rao RN 11/16/19 11/16/2019 11/16/2019 11/16/2019 8:59 AM C DT documented as of this encounter Care Teams Scoop Machine Operator Relationship Specialty Start Date End Date Getachew Samaniego DO PCP - General 05/07/16 04/06/23 Getachew Samaniego DO PCP - General 11/22/11 05/06/16 Getachew Samaniego DO PCP - General Internal Medicine 04/07/23 documented as of this encounter
--- OUTSIDE RECORDS SUMMARY | 2024-05-29 12:22 | XMS_ITS | Clinical Summary ---
Author Organization [facility] Address [address] [place] [address] Care Team Providers Care Tank Refinisher Name Role Phone Jeffery Marvin MD Primary Care Provider Source Comments [facility],non-owned Affiliates and Associated Physician Practices is amultiple site organization consisting of ambulatory clinics and hospital sitesin [place], [place], [place] and [place]. This disclosure is being madepursuant to the Care Everywhere program and may not contain all information available regarding this patient. 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 Gender Identity Not on file Sexual Orientation Not on file Plan of Treatment Health Maintenance Due Date Last Done Comments BONE DENSITY TESTING 1938 DTAP/TDAP/TD VACCINES (1 - Tdap) 1957 PNEUMOCOCCAL VACCINE 50+ (1 of 1 - PCV) 1988 ZOSTER VACCINE (1 of 2) 1988 Respiratory Syncytial Virus (RSV) Vaccine Pt: or over 60 yrs (1 - 1-dose 75+ series) 2013 COVID-19 VACCINE ( - 2023-2 5 season) 2023 DEPRESSION SCREENING 02/08/2024 MEDICARE AWV CALENDAR YEAR 2024 INFLUENZA VACCINE (Season Ended) 2024 HEPATITIS B VACCINE Aged Out No longe r eligible based on patient's age to complete this topic HIB VACCINE Aged Out No longer eligi ble based on patient's age to complete this topic HPV VACCINE Aged Out No longer eligi ble based on patient's age to complete this topic MENINGOCOCCAL (Group B) VACC INE SHARED DECISION-MAKING Aged Out No longer eligibl e based on patient's age to complete this topic MENINGOCOCCAL GROUPS A/C/Y/W VACCINE Aged Out No longer eligible b ased on patient's age to complete this topic Insurance [facility] MANAGED MEDICARE ADV Care Teams Tank Refinisher Relationship Specialty Start Date End Date Jeffery Marvin MD [address] [place] [address] PCP - General 12/08/11
--- OUTSIDE RECORDS SUMMARY | 2024-05-29 12:22 | XMS_ITS | Encounter Summary ---
Author Organization [facility] Address [address] [place] [address] Care Team Providers Care Pharmaceutical Laboratory Technician Name Role Phone Jeffery Marvin MD Primary Care Provider [phone] Encounter Details Date Type Department Care Team (Late st Contact Info) Description 06/10/2021 Lab Requisition [facility] [address] [place] [id number] Seun Nunes MD [address] [place] [address] Social History Tobacco Use Types Packs/Day Years Used Date Smoking Tobacco: Never Assessed Comments Unknown Sex and Gender Information Value Date Recorded Sex Assigned at Not on file 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 Gender Identity Not on file Sexual Orientation Not on file documented as of this encounter Plan of Treatment Not on file documented as of this encounter Procedures Procedure Name Priority Date/Time Associated Diagnosis Comments DERMATOPATHOLOGY Routine 06/09/2021 12:0 0 AM CDT documented in this encounter Results * DERMATOPATHOLOGY (06/09/2021 12:00 AM CDT) Case Report Dermatopathology Report Case: [id number] Authorizing Provider: Seun Nunes MD Collected: 06/09/2021 12:00 AM Ordering Location: [facility] Received: 06/10/2021 01:29 PM Pathologist: Greer Jack MD Specimen: Skin, right cheek above mid jawline 2 5:05 PM CDT DERMATOPATHOLOGY LABORATORY Final Diagnosis Specimen A. 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 2 5:05 PM T DERMATOPATHOLOGY LABORATORY Gross Description Specimen A: Received is one formalin filled container labeled with the patient's name and designated right cheek above mid jawline. The specimen consists of a shave biopsy measuring 3m9m3zd. Jar 0. 2 5:05 PM T DERMATOPATHOLOGY LABORATORY Microscopic Description Specimen A. SKIN, right cheek above mid jawline: The epidermis shows parakeratosis, full thickness disorderly maturation of keratinocytes, mitoses at different levels, and dyskeratotic cells. 2 5:05 PM T DERMATOPATHOLOGY LABORATORY Disclaimer An external and internal positive and negative controls are appropriate for the histochemical, immunohistochemical and immunofluorescence stain(s) in this case (if any), except where stated explicitly. The performance characteristics of the stain(s) cited in this report were developed and its performance characteristic determined by the Dermatopathology Laboratory at [facility], directed by Dr. Darling Jack. These tests need not be, and therefore are not, approved by the [place] Food and Drug Administration. The tests are used for clinical purposes. Billing Codes Specimen Charges Stain Charges 17380 1 2 5:05 PM CDT DERMATOPATHOLOGY LABORATORY Embedded Images 2 5:05 PM CDT DERMATOPATHOLOGY LABORATORY Pathology/Cytolog y TISSUE SPECIMEN FROM SKIN / Unknown 06/09/2021 06/10/2021 1:29 PM CDT us Seun Nunes MD LAB - PATHOLOGY/CYTOLOGY ORD ERABLES Final Result DERMATOPATHOLOGY LABORATORY [facility] - Department of Dermatology [address], [address] [phone] documented in this encounter Visit Diagnoses Not on filedocumented in this encounter Care Teams Pharmaceutical Laboratory Technician Relationship Specialty Start Date End Date Jeffery Marvin MD [address] [place] [address] PCP - General 12/08/11 documented as of this encounter
--- OUTSIDE RECORDS SUMMARY | 2024-05-29 12:23 | XMS_ITS | Clinical Summary ---
Author Organization [facility] [address] Address [address] [place] [address] Care Team Providers Care Chip Silo Tender Name Role Phone Getachew Samaniego DO Primary Care Provider [phone]- [phone] Allergies Active Allergy Reactions Criticality Noted Date Comments Adhesive Rash Medium 11/10/2022 Medications cyanocobalamin (Vitamin B-12) 500 mcg tabletIndication s:Prevention of Vitamin B12 Deficiency Take 1 tablet (500 mcg total) by mouth daily Active aspirin 81 mg chewable tablet Take 1 tablet (81 mg total) by mouth daily 10/26/2019 Active calcium carbonate-vitami n D3 1,250 mg (500 mg elemental)-125 unit per tablet Take 1 tablet by mouth daily Active denosumab (PROLIA) 60 mg/mL syringe Inject 1 mL (60 mg total) under the skin every 6 (six) months Active cholecalciferol (VITAMIN D-3) 5,000 unit tablet Active cycloSPORINE (RESTASIS) 0.05 % ophthalmic emulsion 12/28/2021 Active cetirizine (ZyrTEC) 5 mg chewable tablet Take 1 tablet (5 mg total) by mouth daily Active losartan (COZAAR) 25 mg tablet Take 1 tablet (25 mg total) by mouth daily 30 tablet 6 12/15/2023 Active furosemide (LASIX) 20 mg tablet Take 1 tablet (20 mg total) by mouth daily 90 tablet 1 12/16/2023 Active oxyBUTYnin XL (DITROPAN-XL) 5 mg 24 hr tablet Take 1 tablet (5 mg total) by mouth daily 12/14/2023 Active metoprolol XL (TOPROL-XL) 50 mg extended release tablet TAKE 1 TABLET(50 MG) BY MOUTH DAILY 90 tablet 1 04/13/2024 Active rosuvastatin (CRESTOR) 10 mg tablet TAKE 1 TABLET(10 MG) BY MOUTH DAILY 90 tablet 2 04/16/2024 Active SODIUM CHLORIDE ORAL Take by mouth once 1 gram tablet Active Hospital, Clinic, or Other Facility Administered Medication Ordered Dose Route Frequency Start Date End Date Status denosumab (PROLIA) subcutaneous syringe 60 mgIndications:Age-related osteoporosis without current pathological fracture 60 mg subQ Once 05/18/2024 05/18/2024 Ended Active Problems Problem Noted Date Diagnosed Date Chronic fatigue 07/14/2022 Mixed hyperlipidemia 06/30/2021 Postoperative atrial fibrillation 12/24/2019 S/P aortic valve replacement with bioprosthetic valve 12/24/2019 S/P CABG x 1 12/24/2019 Hyponatremia 12/24/2019 Chronic heart failure with preserved ejection fr action 12/24/2019 S/P patent foramen ovale closure 12/24/2019 Status post ligation of left atrial appendage Nonrheumatic aortic valve stenosis 10/12/2019 Overview (10/12/2019): Added automatically from request for surgery [id number] Nonrheumatic aortic valve insufficiency 09/20/19 20 Overview (09/20/2019): Added automatically from request for surgery [id number] Coronary artery disease invo lving [place] coronary artery of [place] heart without angina pectoris 09/20/2019 Overview (09/20/2019): Added automatically from request for surgery [id number] History of tobacco abuse 07/25/[address] (dyspnea on exertion) 10/07/2017 Mitral valve insufficiency 06/30/2016 Overview (07/02/2016): Mitral valve insufficiency, unspecified etiology History of carotid endarterectomy 06/30/2016 Overview (07/02/2016): History of right-sided carotid endarterectomy Pulmonary hypertension 06/30/2016 Overview (07/02/2016): Pulmonary HTN Stenosis of right carotid artery 06/30/2016 Overview (07/02/2016): Carotid stenosis, right Benign hypertension 06/30/2016 Overview (07/02/2016): HTN (hypertension), benign Ventricular premature beats 06/30/2016 Overview (07/02/2016): PVC's (premature ventricular contractions) Palpitations 06/30/2016 Overview (07/02/2016): Palpitations Aortic valve regurgitation 06/30/2016 Overview (07/02/2016): Aortic valve regurgitation, unspecified etiology Nonsustained ventricular tachycardia 06/30/2016 Overview (07/02/2016): NSVT (nonsustained ventricular tachycardia) Stenosis of carotid artery 10/17/2015 Vitamin D deficiency disease 01/03/2013 Encounter for surgical after care following surgery on the circulatory system 02/29/2012 Osteoporosis 10/20/2011 Overview (05/21/2019): Denosumab 03/30/2019, since 2011, calcium 500, D 10,000 IU daily, ergocalciferol monthly FX HX: Left knee, left wrist PMHx: GERD CAD, hypertension, left knee pain, spinal stenosis with left leg radiculitis Resolved Problems Problem Noted Date Diagnosed Date Resolved Date Chronic anticoagulation 12/24/201906/08 Stenosis of left carotid artery 11/09/2016 02/06/2018 Dyslipidemia 09/24/2016 06/30/2021 Encounters Date Type Department Care Team Description 05/18/2024 1:20 PM CDT Office Visit [address] Medical Office Building [address] [place] [address] Nora Winston DNP Age-related osteoporosis without current pathological fracture (Primary Dx) 05/18/2024 12:50 PM CDT Clinical Support [address] [place] [address] Age-related osteoporosis without current pathological fracture 05/18/2024 Telephone [facility] [address] [facility] Building [address] [place] [address] Nora Winston DNP from Last 3 Months Immunizations Immunization Administration Dates Next Due Influenza, Quadrivalent, Hig h Dose, Preservative Free, Intrr 11/19/2019 Surgical History Surgery Date Site/Laterality Comments CAROTID ENARTERECTOMYY CORONARY ARTERY BYPASS GRAFT 10/09/2019 - 11/07/2019 1 vessel AORTIC VALVE REPLACEMENT 10/09/2019 - 11/07/2019 PATENT FORAMEN OVALE CLOSURE 10/09/2019 - 11/07/2019 CARDIAC VALVE REPLACEMENT 10/2019 Medical History Medical History Date Comments Hypertension PVC's (premature ventricular contractions) Palpitations NSVT (nonsustained ventricul ar tachycardia) (HCC) Arthritis Coronary artery disease Hyperlipidemia Peptic ulceration GERD (gastroesophageal reflux disease) Mitral valve regurgitation Aortic valve disease 10/2019 Status post recent replacement Rbbb Osteoporosis Family History Medical History Relation Name Comments Cancer Father Shaheed Bae Pancreatic cancer Father Shaheed Bae Cancer, pa ncreas; Cause of : Cancer, pancreas Heart attack Maternal Grandfather demetrio phelan Osteoporosis Maternal Grandmother Breast cancer Mother Marcelina Dewey Cancer, breast ; Cause of : Cancer, breast Cancer Mother Marcelina Dewey Hip fracture Mother's Sister Osteoporosis Mother's Sister Broken bones Neg Hx Kyphosis Neg Hx Scoliosis Neg Hx Relation Name Status Comments Father Shaheed Bae (Age 59) Maternal Grandfather demetrio phelan Maternal Grandmother Mother Marcelina Dewey (Age 51) Mother's Sister Social History Tobacco Use Types Packs/Day Years Used Date Smoking Tobacco: Former Cigarettes 0.3 42.2 1 - 1999 Smokeless Tobacco: Never Alcohol Use Standard Drinks/Week Comments Yes 7 (1 standard drink = 0.6 oz pur e alcohol) Comments No Sex and Gender Information Value Date Recorded Sex Assigned at Not on file Legal Sex Female 7:05 AM MECHANICAL TECHNICAL SERVICE SPECIALIST Gender Identity Female 04/03/2019 9:54 AM MECHANICAL TECHNICAL SERVICE SPECIALIST Sexual Orientation Straight 11/27/2019 10 :49 AM CDT Obstetrics History Last Filed Vital Signs Vital Sign Reading Time Taken Comments Blood Pressure 130/60 01/27/2024 1:59 PM MECHANICAL TECHNICAL SERVICE SPECIALIST Pulse 64 01/27/2024 1:29 PM MECHANICAL TECHNICAL SERVICE SPECIALIST Temperature 36.3 C (97.4 F) 01/05/2023 10:56 AM MECHANICAL TECHNICAL SERVICE SPECIALIST Respiratory Rate 15 08/16/2023 10:5 1 AM CDT Oxygen Saturation 96% 01/27/2024 1:29 PM MECHANICAL TECHNICAL SERVICE SPECIALIST Inhaled Oxygen Concentration - - Weight 75.2 kg (165 lb 11.2 oz) 05/18/2024 1:00 PM CDT Height 151.8 cm (4' 11.75 ) 05/18/2024 1:00 PM C DT Body Mass Index 32.63 05/18/2024 1:00 PM CDT Plan of Treatment Health Maintenance Due Date Last Done Comments Depression Screening 1940 DTaP/Tdap/Td Vaccine (1 - Tdap) 1949 Hepatitis B Screening 1956 Pneumococcal vaccine 65+ (1 of 2 - PCV) 1957 Zoster Vaccine (1 of 2) 1988 Well Visit 65+ 11/09/2003 Fall Risk Assessment 11/18/2020 11/19/2019 Influenza Vaccine (Season Ended) 2024 11/19/2019, 11/20/2017, 11/25/2016, Additional history exists Osteoporosis Screening-Bone Density Scan 05/18/2026 05/18/2024, 05/03/2023, 04/19/2022, Additional history exists Medical Devices Implanted Type Area Pearl Glue Operator Device Identifier Shelf Expiration Date Model / Serial / Lot Medtronic Inc [id number] 21mm Valve Aortic Latex Free 400 Series - [id number] - [id number] Implanted:Qty: 1 on 10/16/2019 by Adam Mccoy MD at [facility] N/A: Aorta Med[employer]onic Inc 08/09/2020 [id number] / [id number] / Procedures Procedure Name Priority Date/Time Associated Diagnosis Comments DEXA TBS AXIAL SKELETON BONE DENSITY 1 OR MORE SITES Schedule Routine, Read Routine (OP Routine) 05/18/2024 12:59 PM CDT Age-related osteoporosis without current pathological fracture from Last 3 Months Results * Dexa TBS Axial Skeleton Bone Density 1 or more sites (05/18/2024 12:59 PM CDT) Anatomical Region Laterality Modality Wrist, Body N/A Radiographic Althea ging Narrative 05/21/2024 3:38 PM CDT Patient Name: Marcelina Reed Date of : 1940 Date of scan: 05/18/2024 Bone mineral density was performed on a HoloDiagnose.me Discovery Densitometer. Based on machine cross-calibration and precision studies the least significant changes of this densitometer is 0.024 g/cm2 at the spine, 0.020 g/cm2 at the total proximal femur, and 0.014g/cm2 at the forearm. HISTORY: This is a 83 y.o. postmenopausal female with a history of multiple fractures, osteoporosis, and vitamin D deficiency. She reports that she quit smoking about 25 years ago. Her smoking use included cigarettes. She started smoking about 67 years ago. She has a 10.6 pack-year smoking history. She has never used smokeless tobacco. Currently on treatment with calcium, vitamin D, and denosumab (Prolia), previously treated with alendronate (Fosamax) and ibandronate (Boniva), and current complaint of back pain. INDICATIONS: Menopause status, treatment monitoring, history of prior wrist fracture, vitamin D deficiency, and history of osteoporosis. FINDINGS: BONE MINERAL DENSITY OF THE LUMBAR SPINE Bone Mineral Density (BMD) of the lumbar spine was measured from L1-L4 and the average density was calculated to be 0.992 gm/cm2. This corresponds to a T-score (standard deviations from the mean of young adults) of -0.5. When compared to the previous study of 05/03/2023 there has been no significant changes in bone density. BONE MINERAL DENSITY OF THE PROXIMAL FEMUR Bone Mineral Density (BMD) of the left hip total was found to be 0.892 gm/cm2. This corresponds to a T-score standard deviations from the mean of young adults of -0.4. Femoral neck is 0.686 gm/cm2 with a T-score (standard deviations from the mean of young adults) of -1.5. When compared to the previous study of 05/03/2023 there has been no significant changes in bone density. SUMMARY: Bone mineral density shows evidence of low bone mass at the proximal femur and moderately increased fracture risk (Osteopenia). There has been no significant changes in bone density since previous measurement. The lumbar spine Trabecular Bone Score is 1.214 which suggests degraded bone microarchitecture compared to the general population. Final decisions regarding diagnostic or therapeutic recommendations should include BMD, TBS, additional clinical risk factors as well the clinical context of the patient. Please see attached TBS results for further details. ADDITIONAL COMMENTS: Postmenopausal Women and Men Over 50: Diagnostic criteria: Osteoporosis: BMD at or below -2.5 T-score; Osteopenia (low bone mass): BMD between -1.0 and -2.5 T-score. If the patient has a history of a fragility fracture, a fracture that occurred with trauma equivalent to a fall from a standing position or less, then the diagnosis is osteoporosis regardless of bone density. The history and data sections of the bone mineral density scan were prepared by Claudia Leal (R)([facility])who is accredited by the International Society of Clinical Densitometry. The overall patient assessment and scan interpretation were performed by Queenie Tena M.D. who is certified by the International Society of Clinical Densitometry. [id number] Nora Winston [facility] DXA PROCEDURES Final Result from Last 3 Months Insurance AETNA MEDICARE [facility] Address: [facility] [id number] [place] [address] UHC MEDICARE ADVANTAGE [facility] MEDICARE Address: [address] [address] [place] [address] [facility] MEDICARE [facility] Advance Directives For more information, please contact: [phone] * Full Code (Latest Code Status on File) Date Activated Date Inactivated Comments 11/15/2019 7:37 PM 11/19/2019 8:36 PM * Full Code Date Activated Date Inactivated Comments 10/16/2019 2:00 PM 10/25/2019 5:10 PM * Full Code Date Activated Date Inactivated Comments 09/27/2019 1:18 PM 09/27/2019 7:03 PM Care Teams Chip Silo Tender Relationship Specialty Start Date End Date Getachew Samaniego DO PCP - General Internal Medicine 04/07/23
--- OUTSIDE RECORDS SUMMARY | 2024-05-29 12:23 | XMS_ITS | Encounter Summary ---
Author Organization [facility] Address [address] [place] [address] Phone Care Team Providers Care Flash Ranging Crewmember Name Role Phone Getachew Samaniego DO Primary Care Provider [phone]- [phone] Getachew Samaniego DO Primary Care Provider [phone]- [phone] Encounter Details Date Type Department Care Team (Latest Contact Info) Description 11/09/2016 Orders Only [facility] CONVERSION Scanning, Provider Social History Tobacco Use Types Packs/Day Years Used Date Smoking Tobacco: Never Smokeless Tobacco: Never Alcohol Use Standard Drinks/Week Comments Yes 0 (1 standard drink = 0.6 oz pur e alcohol) Comments Unknown Sex and Gender Information Value Date Recorded Sex Assigned at Not on file Legal Sex Female 7:05 AM PRINT LINE INSPECTOR Gender Identity Female 04/03/2019 9:54 AM PRINT LINE INSPECTOR Sexual Orientation Straight 11/27/2019 10 :49 AM CDT documented as of this encounter Plan of Treatment Not on file documented as of this encounter Procedures Procedure Name Priority Date/Time Associated Diagnosis Comments VASCULAR LABORATORY REPORT 11/09/2016 6:42 PM CDT documented in this encounter Results * VASCULAR LABORATORY REPORT (11/09/2016 6:42 PM CDT) Anatomical Region Laterality Modality Ultrasound us Provider Scanning CV VASCULAR PROCEDURES Final R esult documented in this encounter Visit Diagnoses Not [...] documented as of this encounter Care Teams Flash Ranging Crewmember Relationship Specialty Start Date End Date Getachew Samaniego DO PCP - General 05/07/16 04/06/23 Getachew Samaniego DO PCP - General Internal Medicine 04/07/23 documented as of this encounter
--- OUTSIDE RECORDS SUMMARY | 2024-05-29 12:23 | XMS_ITS | Referral Summary ---
Author Organization [facility] [address] Address [address] [place] [address] Care Team Providers Care Weight Control Lecturer Name Role Phone Getachew Samaniego DO Primary Care Provider [phone]- [phone] Encounters Date Type Department Care Team Description 05/18/[address] Office [address] [place] [address] Nora Winston DNP 05/18/2024 12:50 PM CDT Clinical Support [address] Office [address] [place] [address] Age-related osteoporosis without current pathological fracture 05/18/2024 1:20 PM CDT Office Visit [address] Office [address] [place] [address] Nora Winston DNP Age-related osteoporosis without current pathological fracture (Primary Dx) from Last 3 Months Allergies Active Allergy Reactions Criticality Noted Date [...] (10/12/2019): Added automatically from request for surgery [id number] Nonrheumatic aortic valve insufficiency 09/20/19 20 Overview (09/20/2019): Added automatically from request for surgery [id number] Coronary artery disease invo lving [place] coronary artery of [place] heart without angina pectoris 09/20/2019 Overview (09/20/2019): Added automatically from request for surgery [id number] History of tobacco abuse 07/25/2018 LANE (dyspnea [...] carotid artery 11/09/2016 02/06/2018 Dyslipidemia 09/24/2016 06/30/2021 Immunizations Immunization Administration Dates Next Due Influenza, Quadrivalent, Hig h Dose, Preservative Free, Intrr 11/19/2019 Social History Tobacco Use Types Packs/Day Years Used Date Smoking Tobacco: Former Cigarettes 0.3 42.2 1 - 1999 Smokeless Tobacco: Never Alcohol Use Standard Drinks/Week Comments Yes 7 (1 standard drink = 0.6 oz pur e alcohol) Comments No Sex and Gender Information Value Date Recorded Sex Assigned at Not on file Legal Sex Female 7:05 AM GAS ENGINE OPERATOR COMPRESSORS Gender Identity Female 04/03/2019 9:54 AM GAS ENGINE OPERATOR COMPRESSORS Sexual Orientation Straight 11/27/2019 10 :49 AM CDT Last Filed Vital Signs Vital Sign Reading Time Taken Comments Blood Pressure 130/60 01/27/2024 1:59 PM GAS ENGINE OPERATOR COMPRESSORS Pulse 64 01/27/2024 1:29 PM GAS ENGINE OPERATOR COMPRESSORS Temperature 36.3 C (97.4 F) 01/05/2023 10:56 AM GAS ENGINE OPERATOR COMPRESSORS Respiratory Rate 15 08/16/2023 10:5 1 AM CDT Oxygen Saturation 96% 01/27/2024 1:29 PM GAS ENGINE OPERATOR COMPRESSORS Inhaled Oxygen Concentration - - Weight 75.2 kg (165 lb 11.2 oz) 05/18/2024 1:00 PM CDT Height 151.8 cm (4' 11.75 ) 05/18/2024 1:00 PM C DT Body Mass Index 32.63 05/18/2024 1:00 PM CDT Plan of Treatment Not on file Medical Devices Implanted Type Area Traffic Reporter Device Identifier Shelf Expiration Date Model / Serial / Lot Medtronic Inc [id number] 21mm Valve Aortic Latex Free 400 Series - [id number] - [id number] Implanted:Qty: 1 on 10/16/2019 by Adam Mccoy MD at [facility] N/A: Aorta Med[employer]onic Inc 08/09/2020 [id number] / [id number] / Procedures Procedure Name Priority Date/Time Associated [...] Bone mineral density was performed on a Holo[employer]ton Surgical Discovery Densitometer. Based on machine cross-calibration and [...] mineral density scan were prepared by Claudia Viramontes)([facility])who is accredited by the International Society of Clinical Densitometry. The overall patient assessment and scan interpretation were performed by Queenie Tena M.D. who is certified by the International Society of Clinical Densitometry. [id number] Nora Winston [facility] DXA PROCEDURES Final Result from Last 3 Months Insurance AETNA MEDICARE UHC MEDICARE ADVANTAGE AETNA MEDICARE AETNA MEDICARE Advance Directives For more information, please contact: [phone] * Full Code (Latest Code Status on File) Date Activated Date Inactivated Comments 11/15/2019 7:37 PM 11/19/2019 8:36 PM * Full Code Date Activated Date Inactivated Comments 10/16/2019 2:00 PM 10/25/2019 5:10 PM * Full Code Date Activated Date Inactivated Comments 09/27/2019 1:18 PM 09/27/2019 7:03 PM Care Teams Weight Control Lecturer Relationship Specialty Start Date End Date Getachew Samaniego, PCP - General Internal Medicine 04/07/23
[2024-05-29 14:53] LABS: Vitamin D 25 Hydroxy 94.9 ng/mL
== END 2024-05-29 10:46 | disposition home or self-care (01) ==
PROVIDERS: PCP Internal Medicine
DX: M81.0 Age-related osteoporosis without current pathological fracture (principal)
CPT/HCPCS: 36415; 82306

== ENCOUNTER 2024-06-25 15:12 | Outpatient (CLI) | payer MEDICARE, SELFPAY ==
--- OUTSIDE RECORDS SUMMARY | 2024-06-25 15:16 | XMS_ITS | Clinical Summary ---
Author Organization [facility] Address [address] [place] [address] Care Team Providers Care Bleach Supervisor Name Role Phone Jeffery Marvin MD Primary Care Provider [phone] Source Comments [facility],non-owned Affiliates and Associated Physician Practices is amultiple site organization consisting of ambulatory clinics and hospital sitesin [place], [place], [place] and [place]. This disclosure is being madepursuant to the Care Everywhere program and may not contain all information available regarding this patient. Last updated 17.[facility] [employer] Social History Tobacco Use Types Packs/Day Years Used Date Smoking Tobacco: Never Assessed Comments Unknown Sex and Gender Information Value Date Recorded Sex Assigned at Not on file Legal Sex Female 6:56 PM FUSE CUP EXPANDER Gender Identity Not on file Sexual Orientation [...] patient's age to complete this topic Insurance [facility] MANAGED MEDICARE ADV Care Teams Bleach Supervisor Relationship Specialty Start Date End Date Jeffery Marvin MD [address] [place] [address] PCP - General 12/08/11
--- OUTSIDE RECORDS SUMMARY | 2024-06-25 15:16 | XMS_ITS | Clinical Summary ---
Author Organization [facility] [address] Address [address] [place] [address] Care Team Providers Care Pick Pulling Machine Operator Name Role Phone Getachew Samaniego DO Primary Care Provider +1- [phone] Allergies Active Allergy Reactions Criticality Noted Date Comments Adhesive Rash Medium 11/10/2022 Medications cyanocobalamin (Vitamin B-12) 500 mcg tabletIndicatio ns:Prevention of Vitamin B12 Deficiency Take 1 tablet (500 mcg total) by mouth daily Active aspirin 81 mg chewable tablet Take 1 tablet (81 mg total) by mouth daily 0 Active calcium carbonate-vitam in D3 1,250 mg (500 mg elemental)-125 unit per tablet Take 1 tablet by mouth daily Active denosumab (PROLIA) 60 mg/mL syringe Inject 1 mL (60 mg total) under the skin every 6 (six) months Active cholecalciferol (VITAMIN D-3) 5,000 unit tablet Active cycloSPORINE (RESTASIS) 0.05 % ophthalmic emulsion 2 Active cetirizine (ZyrTEC) 5 mg chewable tablet Take 1 tablet (5 mg total) by mouth daily Active losartan (COZAAR) 25 mg tablet Take 1 tablet (25 mg total) by mouth daily 30 tablet 6 4 12/15/19 25 Active oxyBUTYnin XL (DITROPAN-XL) 5 mg 24 hr tablet Take 1 tablet (5 mg total) by mouth daily 4 Active metoprolol XL (TOPROL-XL) 50 mg extended release tablet TAKE 1 TABLET(50 MG) BY MOUTH DAILY 90 tablet 1 5 Active rosuvastatin (CRESTOR) 10 mg tablet TAKE 1 TABLET(10 MG) BY MOUTH DAILY 90 tablet 2 5 Active SODIUM CHLORIDE ORAL Take by mouth once 1 gram tablet Active furosemide (LASIX) 20 mg tablet TAKE 1 TABLET(20 MG) BY MOUTH DAILY 90 tablet 1 5 Active furosemide (LASIX) 20 mg tablet Take 1 tablet (20 mg total) by mouth daily 90 tablet 1 4 06/12/19 25 Discontinued Active Problems Problem Noted Date Diagnosed Date [...] (10/12/2019): Added automatically from request for surgery [id number] Nonrheumatic aortic valve insufficiency 09/20/19 Overview (09/20/2019): Added automatically from request for surgery [id number] Coronary artery disease invo lving [place] coronary artery of [place] heart without angina pectoris 09/20/2019 Overview (09/20/2019): Added automatically from request for surgery [id number] History of tobacco abuse 07/25/2018 LANE (dyspnea [...] Encounters Date Type Department Care Team Description 05/30/2024 Results Follow-Up [address] [place] [address] Nora Winston DNP Vitamin D 25 hydroxy 05/29/2024 Orders Only [address] [place] [phone] Nora Winston DNP 05/18/2024 1:20 PM CDT Office Visit [address] [place] [address] Nora Winston DNP Age-related osteoporosis without current pathological fracture (Primary Dx) 05/18/2024 12:50 PM CDT Clinical Support [address] [place] [address] Age-related osteoporosis without current pathological fracture 05/18/[address] [place] [address] Nora Winston DNP from Last 3 Months [...] Father Shaheed Bae Pancreatic cancer Father Shaheed aBe Cancer, pa ncreas; Cause of : Cancer, [...] Grandfather demetrio phelan Maternal Grandmother Mother Marcelina Dewye (Age 51) Mother's Sister Social History Tobacco Use Types Packs/Day Years Used Date Smoking Tobacco: Former Cigarettes 0.3 42.2 1 - 1999 Smokeless Tobacco: Never Alcohol Use Standard Drinks/Week Comments Yes 7 (1 standard drink = 0.6 oz pur e alcohol) Comments No Sex and Gender Information Value Date Recorded Sex Assigned at Not on file Legal Sex Female 7:05 AM BUILDING ENERGY CONSULTANT Gender Identity Female 04/03/2019 9:54 AM BUILDING ENERGY CONSULTANT Sexual Orientation Straight 11/27/2019 10 :49 AM CDT Obstetrics History Last Filed Vital Signs Vital Sign Reading Time Taken Comments Blood Pressure 130/60 01/27/2024 1:59 PM BUILDING ENERGY CONSULTANT Pulse 64 01/27/2024 1:29 PM BUILDING ENERGY CONSULTANT Temperature 36.3 C (97.4 F) 01/05/2023 10:56 AM BUILDING ENERGY CONSULTANT Respiratory Rate 15 08/16/2023 10:5 1 AM CDT Oxygen Saturation 96% 01/27/2024 1:29 PM BUILDING ENERGY CONSULTANT Inhaled Oxygen Concentration - - Weight 75.2 [...] history exists Medical Devices Implanted Type Area Sheet Folder Device Identifier Shelf Expiration Date Model / Serial / Lot Medtronic Inc 23358 21mm Valve Aortic Latex Free 400 Series - [id number] - [id number] Implanted:Qty: 1 on 10/16/2019 by Adam Mccoy MD at [facility] N/A: Aorta [employer] 08/09/2020 [id number] / [id number] / Procedures Procedure Name Priority Date/Time Associated Diagnosis Comments VITAMIN D 25 HYDROXY Routine 05/29/2024 9:38 PM CDT DEXA TBS AXIAL SKELETON BONE DENSITY 1 OR MORE SITES Schedule Routine, Read Routine (OP Routine) 05/18/2024 12:59 PM CDT Age-related osteoporosis without current pathological fracture from Last 3 Months Results * Vitamin D 25 hydroxy (05/29/2024 9:38 PM CDT) Blood us Nora Winston DNP LAB BLOOD ORDERABLES Final Resu lt EXTERNAL LAB * Dexa TBS Axial Skeleton Bone Density 1 or more sites (05/18/2024 12:59 PM CDT) Anatomical Region Laterality Modality Wrist, Body N/A Radiographic Althea ging Narrative 05/21/2024 3:38 PM CDT Patient Name: Marcelina Reed Date of : 1940 Date of scan: 05/18/2024 Bone mineral density was performed on a HoloPenana Discovery Densitometer. Based on machine cross-calibration and [...] by the International Society of Clinical Densitometry. [id number] Nora Winston [facility] DXA PROCEDURES Final Result from Last 3 Months Insurance [facility] MEDICARE UHC MEDICARE ADVANTAGE [facility] MEDICARE OF [facility] MEDICARE Address: [facility] [address] [place] [address] [employer] MEDICARE Advance Directives For more information, please contact: [phone] * Full Code (Latest Code Status on File) Date Activated Date Inactivated Comments 11/15/2019 7:37 PM 11/19/2019 8:36 PM * Full Code Date Activated Date Inactivated Comments 10/16/2019 2:00 PM 10/25/2019 5:10 PM * Full Code Date Activated Date Inactivated Comments 09/27/2019 1:18 PM 09/27/2019 7:03 PM Care Teams Pick Pulling Machine Operator Relationship Specialty Start Date End Date Getachew Samaniego DO PCP - General Internal Medicine 04/07/23
--- OUTSIDE RECORDS SUMMARY | 2024-06-25 15:16 | XMS_ITS | Encounter Summary ---
Author Organization [facility] Address [address] [place] [address] Phone Care Team Providers Care Contact Lens Inspector Name Role Phone Getachew Samaniego DO Primary Care Provider [phone]- [phone] Encounter Details Date Type Department Care Team (Late st Contact Info) Description 05/30/2024 Results Follow-Up [facility] [address] [facility] [address] [place] [address] Nora Winston DNP [address] [facility] [address] [place] [address] Vitamin D 25 hydroxy Social History Tobacco Use Types Packs/Day Years Used Date Smoking Tobacco: Former Cigarettes 0.3 42.2 1 - 1999 Smokeless Tobacco: Never Alcohol Use Standard Drinks/Week Comments Yes 7 (1 standard drink = 0.6 oz pur e alcohol) Comments No Sex and Gender Information Value Date Recorded Sex Assigned at Not on file Legal Sex Female 7:05 AM STATISTICIAN THEORETICAL Gender Identity Female 04/03/2019 9:54 AM STATISTICIAN THEORETICAL Sexual Orientation Straight 11/27/2019 10 :49 AM CDT documented as of this encounter Plan of Treatment Not on file documented as of this encounter Visit Diagnoses Not on filedocumented in this encounter Care Teams Contact Lens Inspector Relationship Specialty Start Date End Date Getachew Samaniego DO PCP - General Internal Medicine 04/07/23 documented as of this encounter
--- OUTSIDE RECORDS SUMMARY | 2024-06-25 15:16 | XMS_ITS | Encounter Summary ---
Author Organization [facility] Address [address] [place] [address] Phone Care Team Providers Care Balance Wheel Motion Inspector Name Role Phone Getachew Samaniego DO Primary Care Provider +1- [phone] Getachew Samaniego DO Primary Care Provider +1- [phone] Encounter Details Date Type Department Care Team [...] on file Legal Sex Female 7:05 AM ENVIRONMENTAL SCIENCE PROGRAM DIRECTOR Gender Identity Female 04/03/2019 9:54 AM ENVIRONMENTAL SCIENCE PROGRAM DIRECTOR Sexual Orientation Straight 11/27/2019 10 :49 AM [...] documented as of this encounter Care Teams Balance Wheel Motion Inspector Relationship Specialty Start Date End Date Getachew Samaniego DO PCP - General 05/07/16 04/06/23 Getachew Samaniego DO PCP - General Internal Medicine 04/07/23 documented as of this encounter
--- OUTSIDE RECORDS SUMMARY | 2024-06-25 15:16 | XMS_ITS | Encounter Summary ---
Author Organization [facility] Address [address] [facility] [address] [place] [address] Care Team Providers Care Utilities And Maintenance Supervisor Name Role Phone Getachew Samaniego DO Primary Care Provider [phone]- [phone] Getachew Samaniego DO Primary Care Provider +- [phone] Getachew Samaniego DO Primary Care Provider +1- [phone] Encounter Details Date Type Department Care Team (Late st Contact Info) Description 03/24/2016 Orders Only [facility] ProviderMohini MD [address] [place] [address] Social History Tobacco Use Types Packs/Day Years Used Date Smoking Tobacco: Never Assessed Comments Unknown Sex and Gender Information Value Date Recorded Sex Assigned at Not on file Legal Sex Female 7:05 AM NATURAL RESOURCES INSTRUCTOR Gender Identity Female 04/03/2019 9:54 AM NATURAL RESOURCES INSTRUCTOR Sexual Orientation Straight 11/27/2019 10 :49 AM [...] documented as of this encounter Care Teams Utilities And Maintenance Supervisor Relationship Specialty Start Date End Date Getachew Samaniego DO PCP - General 05/07/16 04/06/23 Getachew Samaniego DO PCP - General 11/22/11 05/06/16 Getachew Samaniego DO PCP - General Internal Medicine 04/07/23 documented as of this encounter
--- OUTSIDE RECORDS SUMMARY | 2024-06-25 15:16 | XMS_ITS | Encounter Summary ---
Author Organization [facility] Address [address] [place] [address] Care Team Providers Care Asphalt Blender Name Role Phone Jeffery Marvin MD Primary Care Provider [phone] Encounter Details Date Type Department Care Team (Late st Contact Info) Description 06/10/2021 Lab Requisition [facility] [address] [place] [id number] Seun Nunes MD [address] [place] [address] Social History Tobacco Use Types Packs/Day Years Used Date Smoking Tobacco: Never Assessed Comments Unknown Sex and Gender Information Value Date Recorded Sex Assigned at Not on file Legal Sex Female 6:56 PM UTILITY TECHNICIAN Gender Identity Not on file Sexual Orientation Not on file documented as of this encounter Plan of Treatment Not on file documented as of this encounter Procedures Procedure Name Priority Date/Time Associated Diagnosis Comments DERMATOPATHOLOGY Routine 06/09/2021 12:0 0 AM CDT documented in this encounter Results * DERMATOPATHOLOGY (06/09/2021 12:00 AM CDT) Case Report Dermatopathology Report Case: [id number] Authorizing Provider: Seun Nunes MD Collected: 06/09/2021 12:00 AM Ordering Location: [facility] Received: 06/10/2021 01:29 PM Pathologist: Greer Jack MD Specimen: Skin, right cheek above mid jawline 2 5:05 PM CDT DERMATOPATHOLOGY LABORATORY Final Diagnosis Specimen A. 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 2 5:05 PM CDT DERMATOPATHOLOGY LABORATORY Gross Description Specimen A: Received is one formalin filled container labeled with the patient's name and designated right cheek above mid jawline. The specimen consists of a shave biopsy measuring [id number]. Jar 0. 2 5:05 PM T DERMATOPATHOLOGY LABORATORY Microscopic Description Specimen A. SKIN, right cheek above mid jawline: The epidermis shows parakeratosis, full thickness disorderly maturation of keratinocytes, mitoses at different levels, and dyskeratotic cells. 2 5:05 PM CDT DERMATOPATHOLOGY LABORATORY Disclaimer An external and internal positive and negative controls are appropriate for the histochemical, immunohistochemical and immunofluorescence stain(s) in this case (if any), except where stated explicitly. The performance characteristics of the stain(s) cited in this report were developed and its performance characteristic determined by the Dermatopathology Laboratory at [facility], directed by Dr. Darling Jack. These tests need not be, and therefore are not, approved by the [place] Food and Drug Administration. The tests are used for clinical purposes. Billing Codes Specimen Charges Stain Charges 53675 1 2 5:05 PM CDT DERMATOPATHOLOGY LABORATORY Embedded Images 2 5:05 PM CDT DERMATOPATHOLOGY LABORATORY Pathology/Cytolog y TISSUE SPECIMEN FROM SKIN / Unknown 06/09/2021 06/10/2021 1:29 PM CDT us Seun Nunes MD LAB - PATHOLOGY/CYTOLOGY ORD ERABLES Final Result DERMATOPATHOLOGY LABORATORY [facility] - Department of Dermatology [address] [phone] documented in this encounter Visit Diagnoses Not on filedocumented in this encounter Care Teams Asphalt Blender Relationship Specialty Start Date End Date Jeffery Marvin MD [address] [place] [address] PCP - General 12/08/11 documented as of this encounter
--- OUTSIDE RECORDS SUMMARY | 2024-06-25 15:16 | XMS_ITS | Referral Summary ---
Author Organization [facility] [address] Address [address] [place] [address] Care Team Providers Care Information Systems Coordinator Name Role Phone Getachew Samaniego DO Primary Care Provider [phone]- [phone] Encounters Date Type Department Care Team Description 05/30/2024 Results Follow-Up [address] [place] [address] Nora Winston DNP Vitamin D 25 hydroxy 05/29/2024 Orders Only [address] [place] [address] Nora Winston DNP 05/18/[address] [place] [address] Nora Winston DNP 05/18/2024 12:50 PM CDT Clinical Support [address] [place] [address] Age-related osteoporosis without current pathological fracture 05/18/2024 1:20 PM CDT Office Visit [address] [place] [address] Nora Winston DNP Age-related osteoporosis without current [...] (10/12/2019): Added automatically from request for surgery [id number] Nonrheumatic aortic valve insufficiency 09/20/19 20 Overview (09/20/2019): Added automatically from request for surgery [id number] Coronary artery disease invo lving [place] coronary artery of [place] heart without angina pectoris 09/20/2019 Overview (09/20/2019): Added automatically from request for surgery [id number] History of tobacco abuse 07/25/2018 L[address] (dyspnea [...] on file Legal Sex Female 7:05 AM TRUCK REPAIR SUPERVISOR Gender Identity Female 04/03/2019 9:54 AM TRUCK REPAIR SUPERVISOR Sexual Orientation Straight 11/27/2019 10 :49 AM CDT Last Filed Vital Signs Vital Sign Reading Time Taken Comments Blood Pressure 130/60 01/27/2024 1:59 PM TRUCK REPAIR SUPERVISOR Pulse 64 01/27/2024 1:29 PM TRUCK REPAIR SUPERVISOR Temperature 36.3 C (97.4 F) 01/05/2023 10:56 AM TRUCK REPAIR SUPERVISOR Respiratory Rate 15 08/16/2023 10:5 1 AM CDT Oxygen Saturation 96% 01/27/2024 1:29 PM TRUCK REPAIR SUPERVISOR Inhaled Oxygen Concentration - - Weight 75.2 kg (165 lb 11.2 oz) 05/18/2024 1:00 PM CDT Height 151.8 cm (4' 11.75 ) 05/18/2024 1:00 PM C DT Body Mass Index 32.63 05/18/2024 1:00 PM CDT Plan of Treatment Not on file Medical Devices Implanted Type Area Designated Broker Device Identifier Shelf Expiration Date Model / Serial / Lot Medtronic Inc 63314 21mm Valve Aortic Latex Free 400 Series - [id number] - [id number] Implanted:Qty: 1 on 10/16/2019 by Adam Mccoy MD at [facility] N/A: Aorta [employer] 08/09/2020 [id number] / [id number] / Procedures Procedure Name Priority Date/Time Associated Diagnosis Comments VITAMIN D 25 HYDROXY Routine 05/29/2024 9:38 PM CDT DEXA TBS AXIAL SKELETON BONE DENSITY 1 OR MORE SITES Schedule Routine, Read Routine (OP Routine) 05/18/2024 12:59 PM CDT Age-related osteoporosis without current pathological fracture from Last 3 Months Results * Vitamin D 25 hydroxy (05/29/2024 9:38 PM CDT) Blood Nora Winston DNP LAB BLOOD ORDERABLES Final Resu lt EXTERNAL LAB * Dexa TBS Axial Skeleton Bone Density 1 or more sites (05/18/2024 12:59 PM CDT) Anatomical Region Laterality Modality Wrist, Body N/A Radiographic Althea ging Narrative 05/21/2024 3:38 PM CDT Patient Name: Marcelina Reed Date of : 1940 Date of scan: 05/18/2024 Bone mineral density was performed on a [employer] Discovery Densitometer. Based on machine cross-calibration and [...] density scan were prepared by Claudia Leal (R)([facility])who is accredited by the International Society of Clinical Densitometry. The overall patient assessment and scan interpretation were performed by Queenie Tena M.D. who is certified by the International Society of Clinical Densitometry. [id number] Nora MoscosoHelen Winston DNP IMG DXA PROCEDURES Final Result from Last 3 Months Insurance [facility] MEDICARE UHC MEDICARE ADVANTAGE [facility] MEDICARE [employer]ET[employer] MEDICARE Advance Directives For more information, please contact: [phone] * Full Code (Latest Code Status on File) Date Activated Date Inactivated Comments 11/15/2019 7:37 PM 11/19/2019 8:36 PM * Full Code Date Activated Date Inactivated Comments 10/16/2019 2:00 PM 10/25/2019 5:10 PM * Full Code Date Activated Date Inactivated Comments 09/27/2019 1:18 PM 09/27/2019 7:03 PM Care Teams Information Systems Coordinator Relationship Specialty Start Date End Date Getachew Samaniego DO PCP - General Internal Medicine 04/07/23
[2024-06-25 20:10] LABS: Basophils Percent Auto 0.6 % (0.2-1.2); Eosinophils Absolute Auto 0.2 K/mm3 (0-0.3); Eosinophils Percent Auto 2.2 % (0-4.4); Hematocrit 38.3 % (37.0-47.0); Hemoglobin 12.6 g/dL (12.0-15.0); Immature Granulocyte Absolute 0.02 K/mm3 (0.00-0.031); Immature Granulocyte Percent A 0.3 % (0-0.5); Lymphocytes Absolute Auto 1.76 K/mm3 (0.9-3.2); Lymphocytes Percent Auto 25.5 % (18.3-44.2); Mean Corpuscular HGB Conc 32.9 g/dl (32-36); Mean Corpuscular Hemoglobin 31.6 pg (26-34); Mean Platelet Volume 10.7 fl (7.4-10.4); Monocytes Absolute Auto 0.7 K/mm3 (0.1-0.6); Monocytes Percent Auto 10.6 % (2.6-8.5); Neutrophils Absolute Auto 4.2 K/mm3 (1.3-6.7); Neutrophils Percent Auto 60.8 % (45.5-73.1); Platelet Count Result 157 k/mm3 (150-375); Red Blood Count 3.99 M/mm3 (4.2-5.4); Red Cell Distribution Width 13.2 % (11.5-14.5); White Blood Count 6.9 K/mm3 (4.5-10.0)
[2024-06-25 20:38] LABS: Free T3 3.71 pg/mL (2.34-5.61)
[2024-06-25 21:03] LABS: Alanine Aminotransferase 14 U/L (6-35); Albumin Level 4.7 g/dL (3.5-5.1); Alkaline Phosphatase 60 U/L (38-126); Anion Gap 9 mmol/L (4-12); Aspartate Amino Transferase 31 U/L (14-36); Bilirubin,Total 0.7 mg/dL (0.2-1.3); Blood Urea Nitrogen 24 mg/dL (7-17); Calcium 10.1 mg/dL (8.4-10.2); Carbon Dioxide 29 mmol/L (22-30); Chloride 98 mmol/L (98-107); Estimated Glomerular Filt Rate 37; Glucose 104 mg/dL (65-110); Potassium 4.6 mmol/L (3.4-5.0); Sodium 136 mmol/L (137-145)
[2024-06-25 21:29] LABS: Thyroid Stimulating Hormone 0.958 uIU/mL (0.465-4.680)
== END 2024-06-25 15:13 | disposition home or self-care (01) ==
LOC: ANHGOSHLAB 15:14
PROVIDERS: PCP Internal Medicine; Visit Provider Internal Medicine
DX: I10 Essential (primary) hypertension (principal); I25.118 Atherosclerotic heart disease of native coronary artery with other forms of angina pectoris; E87.1 Hypo-osmolality and hyponatremia
CPT/HCPCS: 36415; 80053; 84443; 84481; 85025

== ENCOUNTER 2024-12-24 13:58 | Outpatient (CLI) | payer MEDICARE, SELFPAY ==
[2024-12-24 18:31] LABS: Hematocrit 36.4 % (37.0-47.0); Hemoglobin 12.1 g/dL (12.0-15.0); Immature Granulocyte Percent A 0.2 % (0-0.5); Lymphocytes Absolute Auto 1.42 K/mm3 (0.9-3.2); Mean Corpuscular HGB Conc 33.2 g/dl (32-36); Mean Corpuscular Hemoglobin 33.1 pg (26-34); Mean Corpuscular Volume 99.5 fl (80-100); Nucleated Red Blood Cells Absolute Auto 0.000 K/mm3 (0.0-0.012); Nucleated Red Blood Cells Perc 0.0 % (0.0-0.2); Platelet Count Result 154 k/mm3 (150-375); Red Blood Count 3.66 M/mm3 (4.2-5.4); White Blood Count 6.2 K/mm3 (4.5-10.0)
[2024-12-24 18:45] LABS: Alanine Aminotransferase 10 U/L (6-35); Albumin Level 4.6 g/dL (3.5-5.1); Alkaline Phosphatase 61 U/L (38-126); Anion Gap 7 mmol/L (4-12); Aspartate Amino Transferase 26 U/L (14-36); Bilirubin,Total 0.9 mg/dL (0.2-1.3); Blood Urea Nitrogen 17 mg/dL (7-17); Calcium 9.7 mg/dL (8.4-10.2); Carbon Dioxide 30 mmol/L (22-30); Chloride 96 mmol/L (98-107); Estimated Glomerular Filt Rate 47; Glucose 102 mg/dL (65-110); Potassium 4.3 mmol/L (3.4-5.0); Sodium 133 mmol/L (137-145); Total Protein 7.7 g/dL (6.3-8.2)
[2024-12-24 18:56] LABS: Parathyroid Intact 32.7 pg/mL (14.5-75.2)
[2024-12-24 19:03] LABS: Add Urine Microscopic? YES; Appearance Urine Clear (Clear); Glucose Urine UA Negative (Negative); Leukocyte Esterase Ur Trace LEU/UL (Negative); Nitrate Urine Negative (Negative); Non Pathogenic Casts 0-2; Specific Grav Ur 1.008 (1.001-1.035)
[2024-12-25 16:08] LABS: ANA by IFA Rfx Titer/Pattern Negative (.)
== END 2024-12-24 13:59 | disposition home or self-care (01) ==
LOC: ANHGOSHLAB 13:59
PROVIDERS: PCP Internal Medicine; Visit Provider Internal Medicine
DX: I25.118 Atherosclerotic heart disease of native coronary artery with other forms of angina pectoris (principal); E55.9 Vitamin D deficiency, unspecified; M81.0 Age-related osteoporosis without current pathological fracture; N18.31 Chronic kidney disease, stage 3a; I50.32 Chronic diastolic (congestive) heart failure
CPT/HCPCS: 36415; 80053; 81001; 82306; 83970; 84100; 85025; 86038; 86803